=== PATIENT | male | born 1960 | race Caucasian/White ===

== ENCOUNTER 2017-09-04 14:41 | Outpatient (CLI) | payer OTHER | END 2017-09-04 14:42 | disposition home or self-care (01) | LOC: SC 14:41 | PROVIDERS: ATTEND Internal Medicine Pulmonary Disease | DX: G47.30 Sleep apnea, unspecified (principal); G47.10 Hypersomnia, unspecified; G47.8 Other sleep disorders; R06.83 Snoring | CPT/HCPCS: 99203; 99212 ==

== ENCOUNTER 2017-11-13 19:14 | Outpatient (CLI) | payer OTHER | END 2017-11-13 19:15 | disposition home or self-care (01) | LOC: SC 19:14 | PROVIDERS: ATTEND Internal Medicine Pulmonary Disease | DX: G47.33 Obstructive sleep apnea (adult) (pediatric) (principal); G47.61 Periodic limb movement disorder | CPT/HCPCS: 95810 ==

== ENCOUNTER 2017-12-11 09:46 | Outpatient (CLI) | payer OTHER | END 2017-12-11 09:47 | disposition home or self-care (01) | LOC: SC 09:46 | PROVIDERS: ATTEND Internal Medicine Pulmonary Disease | DX: G47.33 Obstructive sleep apnea (adult) (pediatric) (principal) | CPT/HCPCS: 99212; 99213 ==

== ENCOUNTER 2018-01-05 17:03 | Outpatient (CLI) | payer OTHER ==
--- NOTE | 2018-01-05 18:38 | Ultrasound Report ---
Procedure Date: 01/05/2018 Accession Number: [id number] / [id number] Procedure: US - Duplex Ext Veins Right CPT Code: FULL RESULT: EXAM: RIGHT LOWER EXTREMITY VENOUS ULTRASOUND EXAM DATE: 01/05/2018 05:56 PM. CLINICAL HISTORY: MARKED EDEMA PAIN R LE. COMPARISON: None. TECHNIQUE: Real-time sonographic vascular imaging was performed by the cardiac specialist through the lower extremity utilizing both color-flow and Doppler spectral analysis. Multiple herbicide service sales representative static images were saved for review. FINDINGS: Common Femoral Vein (CFV): Normal. CFV-GSV Junction: Normal. Profunda Femoral Vein (PFV): Normal. Femoral Vein (FV) Prox: Normal. Femoral Vein (FV) Mid: Normal. Femoral Vein (FV) Dist: Normal. Popliteal Vein: Normal. Posterior Tibial Veins: Not seen Peroneal Veins: Not seen other: There is a popliteal fossa cyst measuring 5.7 x 2.6 x 4.2 cm IMPRESSION: No evidence for deep venous thrombosis. Popliteal Garcia's cyst. RADIA
== END 2018-01-05 17:04 | disposition home or self-care (01) ==
LOC: DI 17:03
PROVIDERS: ATTEND Internal Medicine
DX: M79.661 Pain in right lower leg (principal); R60.0 Localized edema; M71.21 Synovial cyst of popliteal space [Baker], right knee

== ENCOUNTER 2018-04-04 15:12 | Outpatient (CLI) | payer OTHER | END 2018-04-04 15:13 | disposition home or self-care (01) | LOC: SC 15:12 | PROVIDERS: ATTEND Nurse Practitioner Family | DX: G47.33 Obstructive sleep apnea (adult) (pediatric) (principal) | CPT/HCPCS: 99212; 99214 ==

== ENCOUNTER 2018-07-04 08:40 | Outpatient (CLI) | payer OTHER | END 2018-07-04 08:41 | disposition home or self-care (01) | LOC: SC 08:40 | PROVIDERS: ATTEND Nurse Practitioner Family | DX: G47.33 Obstructive sleep apnea (adult) (pediatric) (principal); R03.0 Elevated blood-pressure reading, without diagnosis of hypertension | CPT/HCPCS: 99212; 99214 ==

== ENCOUNTER 2018-09-04 08:16 | Outpatient (CLI) | payer OTHER | END 2018-09-04 08:17 | disposition home or self-care (01) | LOC: SC 08:16 | PROVIDERS: ATTEND Nurse Practitioner Family | DX: G47.33 Obstructive sleep apnea (adult) (pediatric) (principal); R03.0 Elevated blood-pressure reading, without diagnosis of hypertension | CPT/HCPCS: 99212; 99214 ==

== ENCOUNTER 2018-11-13 13:27 | Outpatient (CLI) | payer OTHER ==
--- NOTE | 2018-11-13 15:07 | Ultrasound Report ---
Reason: ELEVATED LFT, THROMBOCYTOPENIA, UNSPECIFIED Procedure Date: 11/13/2018 Accession Number: [id number] / [id number] Procedure: US - Abdomen Limited CPT Code: FULL RESULT: EXAM: ABDOMEN ULTRASOUND LIMITED, RUQ EXAM DATE: 11/13/2018 01:59 PM. CLINICAL HISTORY: ELEVATED LFT, THROMBOCYTOPENIA, UNSPECIFIED. COMPARISON: None. TECHNIQUE: Real-time scanning was performed with static images obtained. FINDINGS: Liver: Moderately enlarged. Recently increased hepatic parenchymal echogenicity. 20.1 cm. Main portal vein flow: Hepatopetal. Gallbladder: Normal. No stones, wall thickening, or sonographic Carrillo's sign. Biliary System: CBD measures 4.3 mm. No intrahepatic or extrahepatic ductal dilatation. Other: Unremarkable right kidney with right renal length 14.1 cm IMPRESSION: 1. Diffusely echogenic liver parenchyma which is a nonspecific finding, most often associated with steatosis. Less often, this can be associated with chronic hepatitis and/or cirrhosis. 2. Moderate hepatomegaly. 3. Otherwise negative examination. RADIA
== END 2018-11-13 13:28 | disposition home or self-care (01) ==
LOC: DI 13:27
PROVIDERS: ATTEND Internal Medicine
DX: R16.0 Hepatomegaly, not elsewhere classified (principal)
CPT/HCPCS: 76705

== ENCOUNTER 2020-01-02 05:09 | Emergency (ER) | payer OTHER ==
--- NOTE | 2020-01-02 05:18 | ED Physician Documentation ---
History of Present Illness - Stated complaint Stated Complaint: BILAT LEG PX - Chief complaint Chief Complaint: Ext Problem - History obtained from History obtained from: Patient (59 y/o m w cc of b/l le pain, swelling, cramping without cp,sob,syncope, cough. denies any hx of pe/dvt. take hctz. denies tobacco use, denies coldness of extremities. no treatment prior to arrival.) Review of Systems Constitutional: reports: Reviewed and negative Eyes: reports: Reviewed and negative Ears: reports: Reviewed and negative Nose: reports: Reviewed and negative Throat: reports: Reviewed and negative Cardiac: reports: Reviewed and negative Respiratory: reports: Reviewed and negative GI: reports: Reviewed and negative : reports: Reviewed and negative Skin: reports: Reviewed and negative Musculoskeletal: reports: Extremity pain, Extremity swelling Neurologic: reports: Reviewed and negative Psychiatric: reports: Reviewed and negative Endocrine: reports: Reviewed and negative Immunocompromised: reports: Reviewed and negative PD PAST MEDICAL HISTORY - Present Medications Home Medications: Ambulatory Orders Medication Instructions Recorded Confirmed Losartan Potassium 100 mg PO DAILY 01/02/20 01/02/20 Metformin HCl 500 mg PO DAILY 01/02/20 01/02/20 hydroCHLOROthiazide 25 mg PO DAILY 01/02/20 01/02/20 [Hydrochlorothiazide] - Allergies Allergies/Adverse Reactions: Allergies Allergy/AdvReac Type Severity Reaction Status Date / Time No Known Drug Allergies Allergy Verified 01/02/20 05:18 PD ED PE NORMAL - Vitals Vital signs reviewed: Yes - General General: Alert and oriented X 3, No acute distress, Well developed/nourished - HEENT HEENT: PERRL - Neck Neck: Supple, no meningeal sign, No JVD - Cardiac Cardiac: RRR, No murmur, Strong equal pulses - Respiratory Respiratory: No respiratory distress, Clear bilaterally - Abdomen Abdomen: Normal bowel sounds, Soft, Non tender, Non distended - Derm Derm: Warm and dry, Other (b/l le hemosiderin deposition) - Extremities Extremities: No deformity, Other (hemosiderin depositino to b/l lower extremities, 2+ dp/pt pulses, Fasciculations present to bilateral gastrocnemius muscles, Diffuse tenderness to bilateral calves.Sensations intact light touch, compartments soft, neurovascular intact. Cap refill less than 2 seconds bilateral lower extremities warm) - Neuro Neuro: Alert and oriented X 3, processing manager 2-12 intact, No motor deficit, No sensory deficit, Normal speech - Psych Psych: Normal mood, Normal affect Results - Vitals Vitals: Vital Signs - 24 hr 01/02/20 01/02/20 05:10 06:06 Temperature 36.5 C Heart Rate 99 91 Respiratory 20 20 Rate Blood Pressure 172/106 H 141/92 H O2 Saturation 97 95 Oxygen O2 Source Room air - Labs Labs: Laboratory Tests 01/02/20 01/02/20 01/02/20 05:43 05:43 05:43 WBC 3.9 L RBC 4.09 L Hgb 13.4 L Hct 37.7 L MCV 92.2 MCH 32.8 H MCHC 35.5 RDW 12.6 Plt Count 54 L MPV 9.9 Neut # (Auto) 2.5 Lymph # (Auto) 0.9 L Meigs # (Auto) 0.4 Eos # (Auto) 0.1 Baso # (Auto) 0.0 Absolute Nucleated RBC 0.00 Nucleated RBC % 0.0 PT INR APTT Sodium 129 L Potassium 3.1 L Chloride 91 L Carbon Dioxide 21 Anion Gap 17.0 H BUN 8 Creatinine 0.8 Estimated GFR (MDRD) 99 Glucose 106 H Calcium 8.4 L Magnesium 1.1 L Total Bilirubin 2.7 H AST 88 H ALT 49 Alkaline Phosphatase 47 Total Creatine Kinase 505 H B-Natriuretic Peptide 19 Total Protein 7.0 Albumin 4.1 Globulin 2.9 Albumin/Globulin Ratio 1.4 Lipase 75 H 01/02/20 06:00 WBC RBC Hgb Hct MCV MCH MCHC RDW Plt Count MPV Neut # (Auto) Lymph # (Auto) Meigs # (Auto) Eos # (Auto) Baso # (Auto) Absolute Nucleated RBC Nucleated RBC % PT 13.6 H INR 1.2 APTT 29.8 Sodium Potassium Chloride Carbon Dioxide Anion Gap BUN Creatinine Estimated GFR (MDRD) Glucose Calcium Magnesium Total Bilirubin AST ALT Alkaline Phosphatase Total Creatine Kinase B-Natriuretic Peptide Total Protein Albumin Globulin Albumin/Globulin Ratio Lipase PD MEDICAL DECISION MAKING - ED course Complexity details: reviewed results, re-evaluated patient, considered differential (dvt, dehydration, electrolyte depletion/derangement. ), d/w patient, other (patient signed out at shift change to dr. shakir mo.) Departure - Departure Clinical Impression: Hyponatremia, Hypokalemia, Hypomagnesemia Pain of lower extremity Qualifiers: Laterality: bilateral Qualified Code(s): M79.604 - Pain in right leg Condition: Stable
[2020-01-02] MEDS ORDERED: diazePAM INJ 5 MG/ML SYRINGE IVP STA (05:29)
[2020-01-02] MEDS ORDERED: SODIUM CHLORIDE 0.9% 1,000 ML IV STA (05:29)
[2020-01-02 05:50] LABS: BASOPHILS % (AUTO) 0.8 %; EOSINOPHILS # (AUTO) 0.1 10^3/uL (0.0-0.7); EOSINOPHILS % (AUTO) 2.6 %; HGB - HEMOGLOBIN 13.4 g/dL (14.0-18.0); LYMPHOCYTES # (AUTO) 0.9 10^3/uL (1.5-3.5); MEAN CORPUSCULAR HEMOGLOBIN 32.8 pg (27.0-31.0); MEAN CORPUSCULAR HGB CONC 35.5 g/dL (32.0-36.0); MEAN CORPUSCULAR VOLUME 92.2 fL (80.0-94.0); MEAN PLATELET VOLUME 9.9 fL (7.4-11.4); MONOCYTES # (AUTO) 0.4 10^3/uL (0.0-1.0); MONOCYTES % (AUTO) 10.7 %; NEUTROPHILS # (AUTO) 2.5 10^3/uL (1.5-6.6); NEUTROPHILS % (AUTO) 62.6 %; PLT - PLATELET COUNT 54 10^3/uL (130-450); RED BLOOD COUNT 4.09 10^6/uL (4.70-6.10); RED CELL DISTRIBUTION WIDTH 12.6 % (12.0-15.0); WHITE BLOOD COUNT 3.9 x10^3/uL (4.8-10.8)
[2020-01-02 06:03] LABS: ALBUMIN 4.1 g/dL (3.2-5.5); ALBUMIN/GLOBULIN RATIO 1.4 (1.0-2.2); BILIRUBIN,TOTAL 2.7 mg/dL (0.2-1.0); CALCIUM 8.4 mg/dL (8.5-10.3); CREATININE 0.8 mg/dL (0.6-1.2); MAGNESIUM 1.1 mg/dL (1.7-2.8)
[2020-01-02 06:11] LABS: INR 1.2 (0.8-1.2); PT - PROTHROMBIN TIME 13.6 secs (9.9-12.6)
[2020-01-02 06:18] LABS: PARTIAL THROMBOPLASTIN TIME 29.8 secs (24.9-33.3)
[2020-01-02] MEDS ORDERED: MAGNESIUM SULFATE 1 GM/2 ML VIAL IVP STA (06:31)
[2020-01-02] MEDS ORDERED: POTASSIUM CHLORIDE 20 MEQ TABLET PO STA (06:32)
[2020-01-02] MEDS ORDERED: MAGNESIUM SULFATE 2 GRAM 2 GM/50 ML BAG IV ONE (06:50)
[2020-01-02] MEDS ORDERED: KETOROLAC 30 MG/ML VIAL IVP STA (08:02)
--- NOTE | 2020-01-02 08:16 | ED Physician Documentation ---
ED Addendum - Addendum Addendum: 01/02/20 08:14 Recheck upon change of shift and the patient has completed his electrolyte infusion. He is feeling less spasms. He is still sore in the muscles. He describes muscle spasms and general pains and not particularly arthritic joint pains. He had received fluids and electrolyte supplements here. We will add in some Toradol. He does take hydrochlorothiazide as 1 of his medicines so we will have him hold that for several days while we add electrolyte supplements. He c an continue his losartan separately. (The HCTZ is a separate prescription). He does not take any cholesterol medicines. He had not had unusual activity. He is feeling improved enough to head home. He will take today off work and possibly tomorrow until his muscles are feeling better.
[2020-01-02 08:42] VITALS: BP 142/86
--- NOTE | 2020-01-02 08:44 | Ultrasound Report ---
PROCEDURE: Duplex Ext Veins Bilateral INDICATIONS: Bilateral leg pain and swelling. TECHNIQUE: Real-time imaging, as well as color and pulse Doppler interrogation, were performed of the deep veins of both legs from the inguinal ligament to the popliteal fossa. COMPARISON: 01/05/2018. FINDINGS: The deep veins are normally compressible, and free of intraluminal thrombus. Color and pu lse Doppler demonstrate normal phasic intravascular flow. There is normal augmentation response to d istal compression maneuver. There is a fluid collection in the right popliteal fossa measuring up to 3.9 x 2.4 x 3.6 cm compatibl e with a Garcia's cyst. IMPRESSION: 1. No evidence of deep venous thrombosis in the right or left lower extremity. 2. Right Garcia's cyst redemonstrated. Reviewed by: Bret Lutz MD on 01/02/2020 8:43 AM PDT Approved by: Bret Lutz MD on 01/02/2020 8:43 AM PDT Station ID: [id number]
== END 2020-01-02 08:40 | disposition home or self-care (01) ==
LOC: ED 05:09
DX: E87.1 Hypo-osmolality and hyponatremia (principal); E87.6 Hypokalemia; E83.42 Hypomagnesemia
CPT/HCPCS: 36415; 80053; 82550; 83690; 83735; 83880; 85025; 85610; 85730; 93970; 96361; 96374; 96375; 99283; 99284; A9270

== ENCOUNTER 2020-01-02 14:02 | Outpatient (CLI) | payer OTHER | END 2020-01-02 14:03 | disposition critical access hospital (66) | LOC: EMS 14:02 | PROVIDERS: ATTEND Surgery | DX: R41.0 Disorientation, unspecified (principal) | CPT/HCPCS: A0425; A0427 ==

== ENCOUNTER 2020-12-03 00:24 | Emergency (ER) | payer OTHER ==
[2020-12-03] MEDS ORDERED: KETOROLAC 15 MG/ML VIAL IVP STA (00:48)
[2020-12-03] MEDS ORDERED: SODIUM CHLORIDE 0.9% 1,000 ML IV STA (00:48)
[2020-12-03] MEDS ORDERED: LOSARTAN 50 MG TABLET PO STA (00:49)
--- NOTE | 2020-12-03 00:50 | ED Physician Documentation ---
History of Present Illness - Stated complaint Stated Complaint: HIGH BP, ELEVATED HR, DIARRHEA, N/V - Chief complaint Chief Complaint: General - History obtained from History obtained from: Patient, Family () - Additonal information Additional information: 60-year-old man with past medical history of burt, high blood pressure, prior history of alcohol abuse and possible diabetes, not currently on diabetic medications, presents with about 20 hours of progressive nonbloody nonbilious nausea and vomiting and diarrhea. Patient denies fevers but does have myalgias and chills. Also pulled his back out. PD PAST MEDICAL HISTORY - Past Medical History Cardiovascular: Hypertension Respiratory: None Neuro: None Endocrine/Autoimmune: None Musculoskeletal: Other - Past Surgical History Past Surgical History: Yes Ortho: Other - Present Medications Home Medications: Ambulatory Orders Medication Instructions Recorded Confirmed Losartan Potassium 100 mg PO DAILY 01/02/20 12/03/20 Metoprolol Tartrate [Lopressor] 25 mg PO BID 12/03/20 12/03/20 - Allergies Allergies/Adverse Reactions: Allergies Allergy/AdvReac Type Severity Reaction Status Date / Time No Known Drug Allergies Allergy Verified 12/03/20 00:37 - Social History Does the pt smoke?: No Smoking Status: Never smoker Does the pt drink ETOH?: Yes Does the pt have substance abuse?: No - Immunizations Immunizations are current?: Yes - POLST Patient has POLST: No PD ED PE NORMAL - Vitals Vital signs reviewed: Yes - General General: Alert and oriented X 3, No acute distress, Well developed/nourished, Other (Large body habitus) - HEENT HEENT: Atraumatic, PERRL, EOMI - Neck Neck: Supple, no meningeal sign - Cardiac Cardiac: RRR, Other (Significant gynecomastia.) - Respiratory Respiratory: No respiratory distress, Clear bilaterally - Abdomen Abdomen: Non tender, Non distended - Back Back: No CVA TTP, No spinal TTP - Derm Derm: Normal color, Warm and dry - Extremities Extremities: No deformity - Neuro Neuro: Alert and oriented X 3 - Psych Psych: Normal mood, Normal affect Results - Vitals Vitals: Vital Signs - 24 hr 12/03/20 12/03/20 12/03/20 00:35 01:05 01:32 Temperature 36.5 C 36.6 C 36.6 C Heart Rate 89 89 81 Respiratory 20 17 16 Rate Blood Pressure 188/92 H 171/90 H 172/101 H O2 Saturation 96 98 98 Oxygen O2 Source Room air - EKG (time done) 0039 Rate: Rate (enter#) (80) Rhythm: NSR Intervals: Normal [place] Ischemia: Normal ST segments, ST elevation c/w repol. No: ST depression Other comments: Other comments (significant artifact) Compare to prior EKG: Unchanged from prior EKG (01/02/20) 0127 Rate: Rate (enter#) (88) Rhythm: NSR Intervals: Normal [place], QRS normal QRS: Normal Ischemia: Normal ST segments Computer interpretation: Disagree with computer (some mild motion artifact. computer said afib but there are clearly visible p waves with normal pr interval and rr interval) - Labs Labs: Laboratory Tests 12/03/20 12/03/20 12/03/20 00:47 00:47 00:47 WBC 6.7 RBC 4.55 L Hgb 14.1 Hct 41.3 L MCV 90.8 MCH 31.0 MCHC 34.1 RDW 13.3 Plt Count 85 L MPV 10.3 Neut # (Auto) 4.4 Lymph # (Auto) 1.5 Cochran # (Auto) 0.6 Eos # (Auto) 0.2 Baso # (Auto) 0.0 Absolute Nucleated RBC 0.00 Nucleated RBC % 0.0 Sodium 136 Potassium 3.6 Chloride 100 L Carbon Dioxide 24 Anion Gap 12.0 BUN 8 Creatinine 0.9 Estimated GFR (MDRD) 86 L Glucose 131 H Calcium 8.8 Magnesium 1.3 L Total Bilirubin 2.2 H AST 57 H ALT 41 Alkaline Phosphatase 65 Total Protein 7.2 Albumin 4.2 Globulin 3.0 Albumin/Globulin Ratio 1.4 Lipase 41 PD MEDICAL DECISION MAKING - ED course ED course: 60-year-old man presented with nausea, vomiting, diarrhea, found to have elevated blood pressure and heart rate at home. His symptoms have improved in the emergency department. On reexamination he feels asymptomatic. Does state that he thought he had episode of mild self remitting chest twinge at home but that it has completely resolved. Repeat EKG unchanged. He and his believe it is stress related, however strict return precautions given. Patient will follow up with his primary doctor. Departure - Departure Disposition: Home, Self Care Clinical Impression: Nausea and vomiting, Hypertension, Diarrhea Condition: Good Instructions: Hypertension Control, ED Nausea Vomiting Comments: You were seen in the emergency department for nausea and vomiting as well as high blood pressure. Your lab work showed mild elevation in your liver function tests, but they are improved from previous lab work. Your EKG did not show new concerning findings as compared with prior ekg from 2019. Please return to the emergency department immediately if you have any new or worsening symptoms or other concerns. Follow-up with your primary doctor.
[2020-12-03 00:56] LABS: BASOPHILS % (AUTO) 0.6 %; EOSINOPHILS # (AUTO) 0.2 10^3/uL (0.0-0.7); EOSINOPHILS % (AUTO) 3.4 %; HCT - HEMATOCRIT 41.3 % (42.0-52.0); HGB - HEMOGLOBIN 14.1 g/dL (14.0-18.0); LYMPHOCYTES # (AUTO) 1.5 10^3/uL (1.5-3.5); LYMPHOCYTES % (AUTO) 21.5 %; MEAN CORPUSCULAR HGB CONC 34.1 g/dL (32.0-36.0); MEAN CORPUSCULAR VOLUME 90.8 fL (80.0-94.0); MEAN PLATELET VOLUME 10.3 fL (7.4-11.4); MONOCYTES # (AUTO) 0.6 10^3/uL (0.0-1.0); MONOCYTES % (AUTO) 9.1 %; NEUTROPHILS # (AUTO) 4.4 10^3/uL (1.5-6.6); NEUTROPHILS % (AUTO) 65.3 %; PLT - PLATELET COUNT 85 10^3/uL (130-450); RED BLOOD COUNT 4.55 10^6/uL (4.70-6.10); RED CELL DISTRIBUTION WIDTH 13.3 % (12.0-15.0); WHITE BLOOD COUNT 6.7 x10^3/uL (4.8-10.8)
[2020-12-03 01:06] LABS: ALBUMIN 4.2 g/dL (3.2-5.5); ALBUMIN/GLOBULIN RATIO 1.4 (1.0-2.2); BILIRUBIN,TOTAL 2.2 mg/dL (0.2-1.0); CALCIUM 8.8 mg/dL (8.5-10.3); CREATININE 0.9 mg/dL (0.6-1.2); POTASSIUM 3.6 mmol/L (3.5-5.0); TOTAL PROTEIN 7.2 g/dL (6.7-8.2)
[2020-12-03 01:32] VITALS: BP 172/101
--- NOTE | 2020-12-03 08:18 | XRAY Report ---
PROCEDURE: Chest 1 View X-Ray INDICATIONS: Chest Pain TECHNIQUE: One view of the chest was acquired. COMPARISON: Chest x-ray one view, 01/02/2020 FINDINGS: Surgical changes and devices: None. Lungs and pleura: No pleural effusions or pneumothorax. Lungs are clear. Mediastinum: Mediastinal contours appear normal. Heart size is normal. Bones and chest wall: No suspicious bony lesions. Overlying soft tissues appear unremarkable. IMPRESSION: No acute cardiopulmonary disease. No significant discrepancy with the preliminary interpretation. Reviewed by: Rodolfo Tobias MD on 12/03/2020 8:17 AM PDT Approved by: Rodolfo Tobias MD on 12/03/2020 8:17 AM PDT Station ID: [id number]
== END 2020-12-03 01:43 | disposition home or self-care (01) ==
LOC: ED 00:24
DX: R11.2 Nausea with vomiting, unspecified (principal); R19.7 Diarrhea, unspecified; I10 Essential (primary) hypertension; Z20.822 Contact with and (suspected) exposure to COVID-19
CPT/HCPCS: 36415; 71045; 80053; 83690; 83735; 85025; 87635; 93005; 96374; 99281; 99284; A9270

== ENCOUNTER 2024-01-12 09:31 | Outpatient (CLI) | payer OTHER | END 2024-01-12 23:59 | disposition critical access hospital (66) | LOC: EMS 09:31 | DX: R53.1 Weakness (principal); R55 Syncope and collapse; R07.9 Chest pain, unspecified | CPT/HCPCS: A0425; A0427 ==

== ENCOUNTER 2024-01-12 10:01 | Inpatient (IN) | payer OTHER ==
[2024-01-12] MEDS: SODIUM CHLORIDE 0.9% 1,000 ML IV STA ×2 (10:17→12:40)
[2024-01-12] MEDS: MORPHINE 2 MG/ML CARPUJECT IVP STA (10:17)
[2024-01-12 10:23] LABS: BASOPHILS % (AUTO) 0.5 %; HCT - HEMATOCRIT 32.6 % (42.0-52.0); HGB - HEMOGLOBIN 10.5 g/dL (14.0-18.0); LYMPHOCYTES # (AUTO) 1.2 10^3/uL (1.5-3.5); LYMPHOCYTES % (AUTO) 21.7 %; MEAN CORPUSCULAR HEMOGLOBIN 29.1 pg (27.0-31.0); MEAN CORPUSCULAR HGB CONC 32.2 g/dL (32.0-36.0); MEAN CORPUSCULAR VOLUME 90.3 fL (80.0-94.0); MEAN PLATELET VOLUME 11.5 fL (7.4-11.4); MONOCYTES # (AUTO) 0.7 10^3/uL (0.0-1.0); MONOCYTES % (AUTO) 11.7 %; NEUTROPHILS # (AUTO) 3.6 10^3/uL (1.5-6.6); NEUTROPHILS % (AUTO) 65.7 %; RED BLOOD COUNT 3.61 10^6/uL (4.70-6.10); RED CELL DISTRIBUTION WIDTH 19.2 % (12.0-15.0); WHITE BLOOD COUNT 5.5 x10^3/uL (4.8-10.8)
[2024-01-12 10:27] LABS: PLT - PLATELET COUNT 29 10^3/uL (130-450); SLIDE REVIEW? Indicated
--- NOTE | 2024-01-12 10:33 | XRAY Report ---
PROCEDURE: Chest 1V INDICATIONS: Chest Pain TECHNIQUE: One view of the chest was acquired. COMPARISON: 12/03/2020. FINDINGS: Surgical changes and devices: None. Lungs and pleura: Prominent interstitial markings. Probable left pleural effusion. Mediastinum: Mediastinal contours appear normal. Heart size is enlarged. Bones and chest wall: No suspicious bony lesions. Overlying soft tissues appear unremarkable. IMPRESSION: Cardiomegaly and prominent interstitial markings, concerning for pulmonary edema. Probable left pleur al effusion. Reviewed by: Forrest Morales MD on 01/12/2024 10:32 AM PDT Approved by: Forrest Morales MD on 01/12/2024 10:32 AM PDT Station ID: [id number]
[2024-01-12 10:40] LABS: PLATELET ESTIMATE, MANUAL DECREASED (<130,000) (NORMAL); PLATELET MORPHOLOGY NORMAL APPEARANCE (NORMAL); RBC MORPHOLOGY (MULTIPLE) NORMAL APPEARANCE (NORMAL); WBC MORPHOLOGY (MULTIPLE) NORMAL APPEARANCE (NORMAL)
[2024-01-12 10:42] LABS: ALBUMIN 3.5 g/dL (3.2-5.5); ALBUMIN/GLOBULIN RATIO 1.1 (1.0-2.2); BILIRUBIN,TOTAL 1.3 mg/dL (0.2-1.0); CALCIUM 8.5 mg/dL (8.5-10.3); CREATININE 2.7 mg/dL (0.6-1.3); MAGNESIUM 1.4 mg/dL (1.7-2.3); POTASSIUM 3.9 mmol/L (3.5-4.5); TOTAL PROTEIN 6.7 g/dL (6.4-8.9)
[2024-01-12 10:45] LABS: TROPONIN I HIGH SENSITIVITY 17.8 ng/L (2.3-19.7)
[2024-01-12] MEDS: METOPROLOL 5 MG/5 ML VIAL IVP STA ×2 (11:22→12:40)
[2024-01-12] MEDS: MAGNESIUM SULFATE 2 GRAM 2 GM/50 ML BAG IV ONE (12:11)
--- NOTE | 2024-01-12 12:13 | ED Physician Documentation ---
PD HPI SYNCOPE - Stated complaint Stated Complaint: CP/NEAR SYNCOPE - Chief complaint Chief Complaint: Cardiac - History obtained from History obtained from: Patient, Family (spouse), EMS - History of Present Illness Witnessed: Witnessed Timing - onset: Today Duration: Seconds Preceding symptoms: Chest pain (discomfort in chest more than pain per se.), Light headed. 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 Nausea and vomiting and diarrhea, with general weakness and was improving but not back to normal. No emesis since Mon; but still nausea so less intake than usual, as well as food.) Review of Systems Constitutional: reports: Chills, Myalgias, Fatigue. denies: Fever Musculoskeletal: reports: Extremity swelling (chronic lymphedema both lower legs.), Other (chronic lymphedema of both lower legs.) PD PAST MEDICAL HISTORY - Past Medical History Past Medical History: Yes Cardiovascular: Hypertension, Other (no history of AK< CHF, atrial fib. ) Respiratory: None Neuro: None Endocrine/Autoimmune: None Musculoskeletal: Other Other Past Medical History: Lymph edema - Past Surgical History Past Surgical History: Yes Ortho: Other - Present Medications Home Medications: Ambulatory Orders Medication Instructions Recorded Confirmed Metformin HCl [Glucophage Xr] 1 tab BID 12/08/20 02/24/21 Furosemide [Lasix] 20 mg PO DAILY 01/12/24 01/12/24 Losartan [Cozaar] 100 mg PO DAILY 01/12/24 01/12/24 Metoprolol Succinate [Toprol Xl] 50 mg PO DAILY 01/12/24 01/12/24 Zonisamide [Zonegran] 100 mg PO BID 01/12/24 01/12/24 - Allergies Allergies/Adverse Reactions: Allergies Allergy/AdvReac Type Severity Reaction Status Date / Time No Known Drug Allergies Allergy Verified 01/12/24 10:07 - Social History Does the pt smoke?: No Smoking Status: Never smoker Does the pt drink ETOH?: Yes Does the pt have substance abuse?: No - Immunizations Immunizations are current?: Yes - POLST Patient has POLST: No PD ED PE NORMAL - Vitals Vital signs reviewed: Yes - General General: Alert and oriented X 3, No acute distress, Well developed/nourished - Cardiac Cardiac: No murmur. No: RRR (irregular with rate 100-110) - Respiratory Respiratory: No respiratory distress, Clear bilaterally - Abdomen Abdomen: Soft, Non tender - Derm Derm: Normal color, Warm and dry - Extremities Extremities: Other (lymphedema from knees down on both legs. Chronis stasis changes of skin. ) - Neuro Neuro: Alert and oriented X 3, No motor deficit, Normal speech Results - Vitals Vitals: Vital Signs - 24 hr 01/12/24 01/12/24 01/12/24 10:02 10:52 11:47 Temperature 36.3 C L 36.5 C Heart Rate 124 H 121 H 103 H Respiratory 20 18 18 Rate Blood Pressure 129/74 104/69 127/78 O2 Saturation 99 98 100 01/12/24 01/12/24 01/12/24 13:00 13:38 14:31 Temperature Heart Rate 96 96 104 H Respiratory 14 18 18 Rate Blood Pressure 95/52 L 107/71 112/84 H O2 Saturation 98 99 99 01/12/24 01/12/24 01/12/24 15:33 16:27 16:30 Temperature Heart Rate 104 H 105 H 96 Respiratory 13 14 13 Rate Blood Pressure 124/87 H 126/84 H 133/80 H O2 Saturation 98 97 01/12/24 17:28 Temperature Heart Rate 106 H Respiratory 13 Rate Blood Pressure 139/94 H O2 Saturation Oxygen O2 Source Room air - EKG (time done) 10:10 EKG releavant findings:: EKG personally interpreted by author of this note. Relevant findings are: Rate: Rate (enter#) (113) Rhythm: Atrial fibrillation [place]: Normal Ischemia: Normal ST segments. No: ST elevation c/w ischemia, ST depression Compare to prior EKG: Old EKG unavailable - Labs Labs: Laboratory Tests 01/12/24 01/12/24 01/12/24 10:12 10:12 10:12 WBC 5.5 RBC 3.61 L Hgb 10.5 L Hct 32.6 L MCV 90.3 MCH 29.1 MCHC 32.2 RDW 19.2 H Plt Count 29 L* MPV 11.5 H Neut # (Auto) 3.6 Lymph # (Auto) 1.2 L Cand[place] # (Auto) 0.7 Eos # (Auto) 0.0 Baso # (Auto) 0.0 Absolute Nucleated RBC 0.00 Nucleated RBC % 0.0 Manual Slide Review Indicated WBC Morphology NORMAL APPEARANCE Platelet Estimate DECREASED (<130,000) Platelet Morphology NORMAL APPEARANCE RBC Morph Micro Appear NORMAL APPEARANCE Sodium 135 Potassium 3.9 Chloride 99 L Carbon Dioxide 24 Anion Gap 12.0 BUN 21 H Creatinine 2.7 H Estimated GFR (MDRD) 24 L Glucose 113 H Calcium 8.5 Magnesium 1.4 L Total Bilirubin 1.3 H AST 83 H ALT 33 Alkaline Phosphatase 81 Troponin I High Sens 17.8 B-Natriuretic Peptide 70 Total Protein 6.7 Albumin 3.5 Globulin 3.2 Albumin/Globulin Ratio 1.1 Lipase 148 H 01/12/24 01/12/24 11:25 18:01 WBC RBC Hgb Hct MCV MCH MCHC RDW Plt Count MPV Neut # (Auto) Lymph # (Auto) [place] # (Auto) Eos # (Auto) Baso # (Auto) Absolute Nucleated RBC Nucleated RBC % Manual Slide Review WBC Morphology Platelet Estimate Platelet Morphology RBC Morph Micro Appear Sodium 138 Potassium 4.2 Chloride 103 Carbon Dioxide 24 Anion Gap 11.0 BUN 20 Creatinine 1.9 H Estimated GFR (MDRD) 36 L Glucose 97 Calcium 8.4 L Magnesium 1.5 L Total Bilirubin AST ALT Alkaline Phosphatase Troponin I High Sens 16.0 B-Natriuretic Peptide Total Protein Albumin Globulin Albumin/Globulin Ratio Lipase - Rads (name of study) chest xry Relevant Findings:: Prelim report reviewed, EMP independent interpretation of test (cardiomegaly with some prominence interstitial markings.) PD Medical Decision Making - ED course Complexity details: reviewed results (creatinine is elevated at 2.7, presume ALEX with recent illness. Trop and BNP normal, so not apparent AK/CHF.), considered differential (transient hypotension found by medics which improved with IV fluid. ECG okay enroute regarding ischemia but apparent atrial fib with rate [id number]. 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 Had been dehydrated/NV 3-4 days ago and could have been during that. Is rate controlled.), d/w patient ED course: The patient has a history of hypertension in the past. He was ill with signif icant vomiting and diarrhea for 2 days earlier this week on Monday and Monday. He felt improved moderately on Monday and went to work with general weakness feeling. Off work yesterday. He actually felt like he was taking better oral intake for last 2 days. This morning at work he noted an onset of chest discomfort and then fainted. EMS was called and noted his initial blood pressure to be 80s systolic with a heart rate approximately 100-1 20. It did appear irregular. The patient does not have any history of fainting or heart failure or heart attacks. No history of atrial fibrillation. The patient was given IV fluids by EMS and his blood pressure improved promptly. He arrived to the ER with 114 systolic. Heart rate was noted between 100 and 110 and irregular consistent with a rate controlled atrial fibrillation. The patient is feeling generally improved here without any lightheadedness. He is not having any chest pain. Initial blood testing is showing a notable elevation of creatinine at 2.7 with a baseline of him being approximately 1. Other lab values of note were magnesium 1.4. Potassium was in the normal range. His blood count did show a low platelet count of 29. 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 He is not on any medications per se for it. He states he has been as low as 23 in the past but typically runs about 50. His troponin and repeat troponin are normal. BNP is negative. His chest x-ray shows some mild increased vascularity. He does not appear to be in acute heart failure nor have evidence of AK. I presume his atrial fibrillation is due to physiologic stress from recent dehydration and electrolyte imbalances along with the renal insufficiency. He was given a dose of metoprolol. He normally does take blood pressure medicines and had been taking them the last few days which likely contributed to the easier hypotensive effect of the A-fib. Is not positively clear that the A-fib just started this morning though it sounds most likely. Given that its likely related to the physiologic stress of dehydration and recent illness, I not feeling inclined to necessarily go to cardioversion but would rather treat the electrolytes and fluid status, maintain rate control with metoprolol and see if it converts back on its own. I think his main issue is the acute renal insufficiency related to recent illness along with electrolyte imbalance. He is maintained on IV fluid hydration. I do believe he needs hospitalization for hydration and reevaluation of the chemistry panel and monitoring of the heart rate. Departure - Departure Disposition: ED Place in Observation Clinical Impression: ALEX (acute kidney injury), Gastroenteritis, Chronic idiopathic thrombocytopenia, Syncope, New onset atrial fibrillation Condition: Stable Record reviewed to determine appropriate education?: Yes Discharge Date/Time: 01/12/24 19:05
[2024-01-12] MEDS ORDERED: ONDANSETRON 4 MG/2 ML VIAL IVP PRN (18:33)
[2024-01-12] MEDS ORDERED: ACETAMINOPHEN 325 MG TABLET PO PRN (18:33)
[2024-01-12] MEDS ORDERED: SODIUM CHLORIDE FLUSH 0.9% 10 ML SYRINGE IVP PRN (18:33)
[2024-01-12 18:36] LABS: CALCIUM 8.4 mg/dL (8.5-10.3); CREATININE 1.9 mg/dL (0.6-1.3); MAGNESIUM 1.5 mg/dL (1.7-2.3); POTASSIUM 4.2 mmol/L (3.5-4.5)
--- NOTE | 2024-01-12 18:44 | HISTORY & PHYSICAL EXAMINATION ---
Chief Complaint - Chief Complaint Chief Complaint: I passed out History of Present Illness - Admitted From Admitted From:: [facility] Emergency Department - History Obtained From Records Reviewed: EMR History obtained from: Patient Exam Limitations: None - History of Present Illness HPI Comment/Other: Mr. Romero is a 63-year-old male with a history of hypertension, immune thrombocytopenic purpura, lymphedema, NATTY on CPAP, seizure disorder and prediabetes who presents with syncope. The patient indicates that he had been in his normal state of health but on 01/08/2024 he developed myalgias, fatigue, chills and significant nausea, vomiting and diarrhea. He had multiple episodes of emesis and diarrhea but denies having any hematemesis, melena or hematochezia. He was having mild abdominal cramps but denied significant abdominal pain. During that time he was unable to eat very much but was trying to drink electrolyte solutions to stay hydrated. The symptoms persisted through Monday and Monday but started to improve on Monday. Yesterday he was feeling improved though he did notice he was still fatigued, weak and dizzy when standing. Today he did decide to go to work and not long after being at work he became lightheaded and felt chest tightness but denied any palpitations or pleurisy. He then started to blackout and his coworkers indicated he passed out briefly for few seconds. There is no seizure-like activity and he regained consciousness rapidly. EMS was contacted who noted his blood pressure was in the 80s systolic and he was also tachycardic in the 100-1 20 range and apparent new onset atrial fibrillation with RVR. He was given IV fluids and brought to the emergency department. In the emergency department he indicated his symptoms were better and his blood pressure was in the 100-120 systolic range after receiving IV fluids. He remained in atrial fibrillation with rates in the 100-110 range. His labs showed a troponin of 17.8 that decreased to 16.0 but he did have acute kidney injury with a creatinine of 2.7 where his baseline creatinine is about 1.1. He was also noted to have a platelet count of 29, with his baseline platelet count ranging from 50-100 though this is not able to be verified as his labs are not in our system. Given his syncopal episode and new onset atrial fibrillation with RVR along with acute kidney injury he was placed in the hospital for [facility]. History - Past Medical History Cardiovascular: reports: Hypertension Respiratory: reports: None Neuro: reports: None Endocrine/Autoimmune: reports: None Musculoskeletal: reports: Other MRSA Hx?: No Other Past Medical History: Lymph edema - Past Surgical History Ortho: reports: Other - Family & Social History Family History Comment/Other: Patient could not recall his family history - POLST Patient has POLST: No Meds/Allgy - Home Medications Home Medications: Ambulatory Orders Medication Instructions Recorded Confirmed Metformin HCl [Glucophage Xr] 1 tab BID 12/08/20 02/24/21 Furosemide [Lasix] 20 mg PO DAILY 01/12/24 01/12/24 Losartan [Cozaar] 100 mg PO DAILY 01/12/24 01/12/24 Metoprolol Succinate [Toprol Xl] 50 mg PO DAILY 01/12/24 01/12/24 Zonisamide [Zonegran] 100 mg PO BID 01/12/24 01/12/24 - Allergies Allergies/Adverse Reactions: Allergies Allergy/AdvReac Type Severity Reaction Status Date / Time No Known Drug Allergies Allergy Verified 01/12/24 10:07 Review of Systems - Constitutional Constitutional: reports: Fatigue, Fever, Chills, Malaise, Weakness, Poor appetite. denies: Night sweats - Eyes Eyes: denies: Blurred vision, Vision loss - Ears, Nose & Throat Ears, Nose & Throat: denies: Tinnitus, Vertigo - Cardiovascular Cariovascular: reports: Irregular heart rate, Chest pain, Lightheadedness, Syncope. denies: Palpitations, Edema, Exertional dyspnea, Orthopnea - Respiratory Respiratory: denies: Cough, Sputum production, Wheezing, Hemoptysis, Orthopnea - Gastrointestinal Gastrointestinal: reports: Diarrhea, Nausea, Vomiting. denies: Abdominal pain, Black stools, Bloody stools, Coffee grounds emesis - Genitourinary Genitourinary: denies: Dysuria, Frequency, Urgency, Hematuria - Musculoskeletal Musculoskeletal: reports: Muscle pain - Integumentary Integumentary: denies: Rash, Lesions - Neurological Neurological: reports: General weakness, Dizziness. denies: Focal weakness, Headache, Numbness - Endocrine Endocrine: denies: Polyuria, Polydypsia, Polyphagia - Hematologic/Lymphatic Hematologic/Lymphatic: reports: Bruising, Petechiae Exam - Vital Signs Reviewed Vital Signs: Yes Vital Signs: Vital Signs x48h Temp Pulse Resp BP Pulse Ox 01/12/24 17:28 106 H 13 139/94 H 01/12/24 16:30 96 13 133/80 H 97 01/12/24 16:27 105 H 14 126/84 H 01/12/24 15:33 104 H 13 124/87 H 98 01/12/24 14:31 104 H 18 112/84 H 99 01/12/24 13:38 96 18 107/71 99 01/12/24 13:00 96 14 95/52 L 98 01/12/24 11:47 103 H 18 127/78 100 01/12/24 10:52 36.5 C 121 H 18 104/69 98 - Physical Exam General Appearance: positive: No acute distress, Alert, Other (Appears fatigued) Eyes Bilateral: positive: Normal inspection, PERRL, EOMI ENT: positive: ENT inspection nml, Pharynx nml, Dry mucous membranes Neck: positive: Nml inspection, Thyroid nml, No JVD, Trachea midline Respiratory: positive: No respiratory distress, Breath sounds nml. negative: Wheezes, Rales, Rhonchi Cardiovascular: positive: No murmur, No gallop, Irregularly irregular, Tachycardia Peripheral Pulses: positive: Other (Unable to palpate due to significant lym phedema) Abdomen: positive: Non-tender, No organomegaly, Nml bowel sounds Skin: positive: Color nml, No rash, Warm, Dry Extremities: positive: Other (Very significant lymphedema in bilateral lower extremities with wrapping on the lower aspect of the legs.) Neurologic/Psychiatric: positive: Oriented x3, CN's nml (2-12), Motor nml, Sensation nml Sepsis Event Note (H) - Evaluation Current Stage of Sepsis: Ruled out Conclusion/Plan - Problem List (1) Syncope and collapse Conclusion/Plan: His syncope is likely multifactorial in nature. Given his recent viral gastroenteritis with significant nausea, vomiting and diarrhea earlier this week he has evidence of volume depletion given his acute kidney injury. This is likely the main cause for syncope however he does have new onset atrial fibrillation with RVR and an arrhythmia genic cause is possible as well. While less likely, a pulmonary embolism is a possibility given his significant chronic lymphedema and poor mobility. -Will monitor on telemetry and treat his atrial fibrillation as noted below. -Trend troponins, check D-dimer, obtain echocardiogram, check lower extremity venous duplex. -May ultimately need CTA of his chest to rule out PE once his renal function improves. Cannot empirically anticoagulate given his thrombocytopenia. -Check orthostatic vital signs and placed on continuous IV fluids. (2) Atrial fibrillation with RVR Conclusion/Plan: This represents new onset atrial fibrillation for him. This may be why he was having some chest tightness and may have contributed to his syncope. -Monitor on telemetry. -Trend troponins further however clinically does not appear to be ischemic in nature at this time. -Obtain TTE. If he has systolic dysfunction, he will need further ischemic evaluation. -Check TSH, A1c, lipid panel. -Placed on metoprolol to tartrate 25 mg twice daily. As needed IV metoprolol available for heart rate greater than 110. -Cannot place on anticoagulation at this time given his thrombocytopenia. (3) Lymphedema Conclusion/Plan: He has a longstanding history of chronic lymphedema and follows in the wound clinic due to chronic venous stasis ulcerations. -Will obtain lower extremity venous Doppler to rule out DVT. (4) Cardiomegaly Conclusion/Plan: This is noted on his chest x-ray. Denies any history of CHF or other cardiac conditions. -Obtaining TTE as noted under his atrial fibrillation problem. (5) ALEX (acute kidney injury) Conclusion/Plan: His acute kidney injury is likely secondary to prerenal causes from his dehydration secondary to his viral gastroenteritis. Medication side effects from losartan and furosemide are also contributing in the setting of dehydration. Less likely to be ATN. -Will check renal ultrasound to rule out obstructive causes though that is less likely. -Avoid unnecessary nephrotoxins. -Hold home losartan and furosemide. -Obtain urinalysis, urine sodium and urine creatinine. Obtain serum CK. (6) Prediabetes Conclusion/Plan: Has been on metformin in the past however he indicates he is not taking this anymore and denies having diabetes. -Check A1c. (7) Chronic idiopathic thrombocytopenia Conclusion/Plan: He follows with a continuity director in [place] however he does not recall the name of the continuity director. He denies having any active medications or therapies directed at his ITP. -Reportedly his platelet count baseline is 50-100 but this is not clear as we have no prior records. -Currently platelet count is only 29. Will hold any pharmacologic DVT pr ophylaxis or treatment and avoid NSAIDs. -Monitor daily CBC. -If he has a blood clot on workup, we will have to discuss with hematology at another facility. (8) Seizure disorder Conclusion/Plan: Denies having any recent seizures issues and no reports of seizure-like activity during his syncopal event today. -Monitor for now but no need for seizure workup. -Resume home zonisamide 100 mg twice daily. - Lab Results Fish Bones: 01/12/24 10:12 01/12/24 18:01 - Diagnostic Imaging Results Diagnostic Imaging Results Comments: Chest x-ray: Cardiomegaly and prominent interstitial markings, concerning for pulmonary edema. Probable left pleural effusion. - EKG Results EKG Interpreted Independently: Yes EKG Findings: per my read - atrial fibrillation, HR 113, normal axis and intervals, low voltage, no pathologic Q-waves, no ischemic ST-TW changes. Core Measures - Anticipated LOS I expect patient to be DC'd or transferred within 96 hours.: Yes - DVT/VTE - Prophylaxis VTE/DVT Device ordered at admit?: Yes
[2024-01-12] MEDS ORDERED: HEPARIN 25000UNITS/500ML (D5W) 25,000 UNIT/500 ML BAG IV SCH (19:00)
[2024-01-12] MEDS ORDERED: HEPARIN 5,000 UNIT/ML VIAL IVP ONE (19:00)
[2024-01-12] MEDS: METOPROLOL TARTRATE 50 MG TABLET PO STA (19:38)
[2024-01-12 19:39] LABS: ESTIMATED AVERAGE GLUCOSE 128 mg/dL (70-100); HEMOGLOBIN A1c% 6.1 % (4.27-6.07)
[2024-01-12] MEDS: MAGNESIUM SULFATE 1 GM in SODIUM CHLORIDE 0.9% 50 ML IV ONE (19:40)
[2024-01-12] MEDS: SODIUM CHLORIDE 0.9% 1,000 ML IV SCH (19:40)
[2024-01-12] MEDS ORDERED: NON FORMULARY MED PO SCH (21:00)
[2024-01-12 21:15] LABS: BILIRUBIN,URINE NEGATIVE (NEGATIVE); GLUCOSE, URINE (UA) NEGATIVE (NEGATIVE); KETONES,URINE (UA) NEGATIVE (NEGATIVE); LEUKOCYTE ESTERASE, URINE NEGATIVE (NEGATIVE); NITRITE,URINE NEGATIVE (NEGATIVE); OCCULT BLOOD,URINE SMALL (NEGATIVE); PROTEIN,URINE NEGATIVE (NEGATIVE); UROBILINOGEN,URINE 0.2 (NORMAL) E.U./dL (NORMAL)
[2024-01-12] MEDS: METOPROLOL TARTRATE 25 MG TABLET PO SCH (21:15)
[2024-01-12 21:26] LABS: CASTS, URINE 0-2 Hyaline Casts /LPF; CLARITY,URINE CLEAR (CLEAR); SQUAMOUS EPITHELIAL CELL,UR RARE Squamous (<= Few); WBC,URINE 0-3 /HPF (0-3)
[2024-01-12 21:27] LABS: BACTERIA,URINE None Seen /HPF (None Seen)
[2024-01-12 21:49] LABS: CREATININE,URINE 91.1 mg/dL; SODIUM, URINE 40.5 mmol/L
[2024-01-13] MEDS: SODIUM CHLORIDE FLUSH 0.9% 10 ML SYRINGE IVP SCH (01:48)
[2024-01-13] MEDS: BENZOCAINE/MENTHOL LOZENGE MM PRN (05:02)
[2024-01-13 05:16] LABS: HCT - HEMATOCRIT 32.2 % (42.0-52.0); HGB - HEMOGLOBIN 10.4 g/dL (14.0-18.0); LYMPHOCYTES # (AUTO) 0.5 10^3/uL (1.5-3.5); LYMPHOCYTES % (AUTO) 17.1 %; MEAN CORPUSCULAR HEMOGLOBIN 29.5 pg (27.0-31.0); MEAN CORPUSCULAR HGB CONC 32.3 g/dL (32.0-36.0); MEAN CORPUSCULAR VOLUME 91.2 fL (80.0-94.0); MEAN PLATELET VOLUME 10.6 fL (7.4-11.4); MONOCYTES # (AUTO) 0.5 10^3/uL (0.0-1.0); NEUTROPHILS # (AUTO) 1.9 10^3/uL (1.5-6.6); NEUTROPHILS % (AUTO) 65.6 %; RED BLOOD COUNT 3.53 10^6/uL (4.70-6.10); RED CELL DISTRIBUTION WIDTH 19.3 % (12.0-15.0); WHITE BLOOD COUNT 2.9 x10^3/uL (4.8-10.8)
[2024-01-13 05:32] LABS: BUN - BLOOD UREA NITROGEN 20 mg/dL (6-20); CALCIUM 8.4 mg/dL (8.5-10.3); CARBON DIOXIDE - CO2 24 mmol/L (21-32); CHLORIDE 106 mmol/L (101-111); CHOL/HDL RATIO 1.5 (<5.0); CHOLESTEROL 114 mg/dL; CREATININE 1.5 mg/dL (0.6-1.3); GFR - MDRD 47 (>89); GLUCOSE 90 mg/dL (74-104); HDL CHOLESTEROL 75 mg/dL; LDL CHOLESTEROL,CALCULATED 28 mg/dL; LDL/HDL RATIO 0.4 (<3.6); POTASSIUM 4.3 mmol/L (3.5-4.5); SODIUM 140 mmol/L (135-145); TRIGLYCERIDES 56 mg/dL; VLDL CHOLESTEROL 11 mg/dL
[2024-01-13 06:34] LABS: PLT - PLATELET COUNT 21 10^3/uL (130-450); SLIDE REVIEW? Indicated
[2024-01-13 06:51] LABS: PLATELET ESTIMATE, MANUAL DECREASED (<130,000) (NORMAL); PLATELET MORPHOLOGY NORMAL APPEARANCE (NORMAL)
[2024-01-13 07:53] LABS: ABSOLUTE RETICS # AUTO 0.037 10^6/uL (0.020-0.110); RED BLOOD COUNT 3.55 10^6/uL (4.70-6.10); RETICULOCYTE COUNT % (AUTO) 1.04 % (0.5-2.3)
[2024-01-13] MEDS: METOPROLOL SUCCINATE 50 MG TABLET PO SCH ×2 (08:47→13:22)
[2024-01-13] MEDS: dexAMETHasone 4 MG TABLET PO SCH (08:47)
[2024-01-13] MEDS: guaiFENesin 600 MG TABLET PO SCH (08:48)
[2024-01-13 09:17] LABS: HCT - HEMATOCRIT 32.1 % (42.0-52.0); HGB - HEMOGLOBIN 10.4 g/dL (14.0-18.0); MEAN CORPUSCULAR HEMOGLOBIN 29.5 pg (27.0-31.0); MEAN CORPUSCULAR HGB CONC 32.4 g/dL (32.0-36.0); MEAN CORPUSCULAR VOLUME 91.2 fL (80.0-94.0); MEAN PLATELET VOLUME 9.3 fL (7.4-11.4); RED BLOOD COUNT 3.52 10^6/uL (4.70-6.10); RED CELL DISTRIBUTION WIDTH 19.2 % (12.0-15.0); WHITE BLOOD COUNT 3.4 x10^3/uL (4.8-10.8)
[2024-01-13] MEDS: METOPROLOL 5 MG/5 ML VIAL IVP PRN ×2 (10:51→16:49)
--- NOTE | 2024-01-13 11:45 | PHARMACY PROGRESS NOTE ---
- Best Possible Medication History Admit Date and Time: 01/12/24 1833 Processed by: Pharmacy Medication History completed: Yes Patient Interview: Completed Secondary Source(s): Insurance records (PER INSURANCE RECORDS, HOME MEDICATION, AND PT INTERVIEW) As the person ultimately responsible for medication therapy, providers are able to order a medication from an existing home medication list in [facility] via the "Reconcile Routine" prior to Confirmation of that medication by community support specialist. Such practice is discouraged except when the physician, in their clinical judgment, deems that a medical need exists for a medication without regard to pr evious use.
[2024-01-13] MEDS ORDERED: METOPROLOL 5 MG/5 ML VIAL IVP PRN (12:15)
--- NOTE | 2024-01-13 14:19 | PROVIDER PROGRESS NOTE ---
Subjective - Prog Note Date Prog Note Date: 01/13/24 Prog Note Time: 14:17 - Subjective Pt reports feeling: Improved Subjective: No acute events overnight or since admission. He reports feeling shaky this morning but denies having any dyspnea, nausea, vomiting, diarrhea, orthopnea or PND. He does still have some mild chest tightness but denies any palpitations. Remains afebrile. His labs show that his creatinine has been improving though he has pancytopenia and his platelet counts have decreased to 21. His D-dimer was also elevated at 850. Objective - Vital Signs/Intake & Output Reviewed Vital Signs: Yes Vital Signs: Vital Signs x48h Temp Pulse Resp BP BP Pulse Ox 01/13/24 11:51 118 H 169/110 H 01/13/24 11:36 125 H 160/114 H 01/13/24 11:21 126 H 169/110 H 158/118 H 01/13/24 11:06 116 H 156/115 H 01/13/24 11:01 113 H 156/97 H 01/13/24 10:56 123 H 158/106 H 01/13/24 10:51 124 H 159/110 H 159/110 H 96 01/13/24 08:41 37.2 C 119 H 16 156/108 H 98 Intake & Output: Intake & Output 01/10/24 01/11/24 01/12/24 01/13/24 23:59 23:59 23:59 23:59 Intake Total 2102 3270 Output Total 1250 1025 Balance 852 2245 - Objective General Appearance: positive: No acute distress, Alert Eyes Bilateral: positive: Normal inspection, PERRL, EOMI ENT: positive: ENT inspection nml, Pharynx nml, No signs of dehydration Neck: positive: Nml inspection, Thyroid nml, No JVD, Trachea midline Respiratory: positive: No respiratory distress, Breath sounds nml. negative: Wheezes, Rales, Rhonchi Cardiovascular: positive: No murmur, No gallop, Irregularly irregular, Tachycardia Abdomen: positive: Non-tender, No organomegaly, Nml bowel sounds, No distention Skin: positive: Warm, Dry, Skin rash (Chronic venous stasis dermatitis changes in his lower extremities.) Extremities: positive: Non-tender, Pedal edema (Significant 3-4 close pitting lymphedema of both lower extremities) Neurologic/Psychiatric: positive: Oriented x3, CN's nml (2-12), Motor nml, Sensation nml - Lab Results Fish Bones: 01/13/24 09:09 01/13/24 04:42 Other Labs: Lab Results x24hrs 01/13/24 01/13/24 01/13/24 Range/Units 09:09 04:42 04:42 WBC 3.4 L (4.8-10.8) x10^3/uL RBC 3.52 L (4.70-6.10) 10^6/uL Hgb 10.4 L (14.0-18.0) g/dL Hct 32.1 L (42.0-52.0) % MCV 91.2 (80.0-94.0) fL MCH 29.5 (27.0-31.0) pg MCHC 32.4 (32.0-36.0) g/dL RDW 19.2 H (12.0-15.0) % Plt Count 22 L* (130-450) 10^3/uL MPV 9.3 (7.4-11.4) fL Reticulocyte % (Auto) (0.5-2.3) % Neut # (Auto) (1.5-6.6) 10^3/uL Lymph # (Auto) (1.5-3.5) 10^3/uL [place] # (Auto) (0.0-1.0) 10^3/uL Eos # (Auto) (0.0-0.7) 10^3/uL Baso # (Auto) (0.0-0.1) 10^3/uL Absolute Nucleated RBC x10^3/uL Nucleated RBC % /100WBC Manual Slide Review Platelet Estimate (NORMAL) Platelet Morphology (NORMAL) Absolute Retic (0.020-0.110) 10^6/uL APTT (24.9-33.3) secs D-Dimer (200.0-255.0) ng/mL Sodium (135-145) mmol/L Potassium (3.5-4.5) mmol/L Chloride (101-111) mmol/L Carbon Dioxide (21-32) mmol/L Anion Gap (6-13) BUN (6-20) mg/dL Creatinine (0.6-1.3) mg/dL Estimated GFR (MDRD) (>89) Glucose (74-104) mg/dL Estimat Average Glucose (70-100) mg/dL Hemoglobin A1c % (4.27-6.07) % Calcium (8.5-10.3) mg/dL Magnesium (1.7-2.3) mg/dL Lactate Dehydrogenase 346 H (140-271) IU/L Total Creatine Kinase (30-223) IU/L Troponin I High Sens (2.3-19.7) ng/L Triglycerides mg/dL Cholesterol ( - 200) mg/dL LDL Cholesterol, Calc ( - 129) mg/dL VLDL Cholesterol mg/dL HDL Cholesterol (60 - ) mg/dL LDL/HDL Ratio (<3.6) Cholesterol/HDL Ratio (<5.0) Vitamin B12 402 (180-914) pg/mL Folate 5.1 L (5.90 - >24.8) ng/mL TSH (0.34-5.60) uIU/mL Urine Color Urine Clarity (CLEAR) Urine pH (5.0-7.5) PH Ur Specific [place] (1.002-1.030) Urine Protein (NEGATIVE) mg/dL Urine Glucose (UA) (NEGATIVE) mg/dL Urine Ketones (NEGATIVE) mg/dL Urine Occult Blood (NEGATIVE) Urine Nitrite (NEGATIVE) Urine Bilirubin (NEGATIVE) Urine Urobilinogen (NORMAL) E.U./dL Ur Leukocyte Esterase (NEGATIVE) Urine RBC (0-5) /HPF Urine WBC (0-3) /HPF Ur Squamous Epith Cells (<= Few) Urine Bacteria (None Seen) /HPF Urine Casts /LPF Urine Culture Comments Urine Creatinine mg/dL Urine Sodium mmol/L 01/13/24 01/13/24 01/13/24 Range/Units 04:42 04:42 04:42 WBC 2.9 L (4.8-10.8) x10^3/uL RBC 3.55 L 3.53 L (4.70-6.10) 10^6/uL Hgb 10.4 L (14.0-18.0) g/dL Hct 32.2 L (42.0-52.0) % MCV 91.2 (80.0-94.0) fL MCH 29.5 (27.0-31.0) pg MCHC 32.3 (32.0-36.0) g/dL RDW 19.3 H (12.0-15.0) % Plt Count 21 L* (130-450) 10^3/uL MPV 10.6 (7.4-11.4) fL Reticulocyte % (Auto) 1.04 (0.5-2.3) % Neut # (Auto) 1.9 (1.5-6.6) 10^3/uL Lymph # (Auto) 0.5 L (1.5-3.5) 10^3/uL [place] # (Auto) 0.5 (0.0-1.0) 10^3/uL Eos # (Auto) 0.0 (0.0-0.7) 10^3/uL Baso # (Auto) 0.0 (0.0-0.1) 10^3/uL Absolute Nucleated RBC 0.00 x10^3/uL Nucleated RBC % 0.0 /100WBC Manual Slide Review Indicated Platelet Estimate DECREASED (<130,000) (NORMAL) Platelet Morphology NORMAL APPEARANCE (NORMAL) Absolute Retic 0.037 (0.020-0.110) 10^6/uL APTT (24.9-33.3) secs D-Dimer (200.0-255.0) ng/mL Sodium 140 (135-145) mmol/L Potassium 4.3 (3.5-4.5) mmol/L Chloride 106 (101-111) mmol/L Carbon Dioxide 24 (21-32) mmol/L Anion Gap 10.0 (6-13) BUN 20 (6-20) mg/dL Creatinine 1.5 H (0.6-1.3) mg/dL Estimated GFR (MDRD) 47 L (>89) Glucose 90 (74-104) mg/dL Estimat Average Glucose (70-100) mg/dL Hemoglobin A1c % (4.27-6.07) % Calcium 8.4 L (8.5-10.3) mg/dL Magnesium (1.7-2.3) mg/dL Lactate Dehydrogenase (140-271) IU/L Total Creatine Kinase (30-223) IU/L Troponin I High Sens (2.3-19.7) ng/L Triglycerides 56 mg/dL Cholesterol 114 ( - 200) mg/dL LDL Cholesterol, Calc 28 ( - 129) mg/dL VLDL Cholesterol 11 mg/dL HDL Cholesterol 75 (60 - ) mg/dL LDL/HDL Ratio 0.4 (<3.6) Cholesterol/HDL Ratio 1.5 (<5.0) Vitamin B12 (180-914) pg/mL Folate (5.90 - >24.8) ng/mL TSH (0.34-5.60) uIU/mL Urine Color Urine Clarity (CLEAR) Urine pH (5.0-7.5) PH Ur Specific [place] (1.002-1.030) Urine Protein (NEGATIVE) mg/dL Urine Glucose (UA) (NEGATIVE) mg/dL Urine Ketones (NEGATIVE) mg/dL Urine Occult Blood (NEGATIVE) Urine Nitrite (NEGATIVE) Urine Bilirubin (NEGATIVE) Urine Urobilinogen (NORMAL) E.U./dL Ur Leukocyte Esterase (NEGATIVE) Urine RBC (0-5) /HPF Urine WBC (0-3) /HPF Ur Squamous Epith Cells (<= Few) Urine Bacteria (None Seen) /HPF Urine Casts /LPF Urine Culture Comments Urine Creatinine mg/dL Urine Sodium mmol/L 01/12/24 01/12/24 01/12/24 Range/Units 21:00 21:00 18:42 WBC (4.8-10.8) x10^3/uL RBC (4.70-6.10) 10^6/uL Hgb (14.0-18.0) g/dL Hct (42.0-52.0) % MCV (80.0-94.0) fL MCH (27.0-31.0) pg MCHC (32.0-36.0) g/dL RDW (12.0-15.0) % Plt Count (130-450) 10^3/uL MPV (7.4-11.4) fL Reticulocyte % (Auto) (0.5-2.3) % Neut # (Auto) (1.5-6.6) 10^3/uL Lymph # (Auto) (1.5-3.5) 10^3/uL [place] # (Auto) (0.0-1.0) 10^3/uL Eos # (Auto) (0.0-0.7) 10^3/uL Baso # (Auto) (0.0-0.1) 10^3/uL Absolute Nucleated RBC x10^3/uL Nucleated RBC % /100WBC Manual Slide Review Platelet Estimate (NORMAL) Platelet Morphology (NORMAL) Absolute Retic (0.020-0.110) 10^6/uL APTT (24.9-33.3) secs D-Dimer (200.0-255.0) ng/mL Sodium (135-145) mmol/L Potassium (3.5-4.5) mmol/L Chloride (101-111) mmol/L Carbon Dioxide (21-32) mmol/L Anion Gap (6-13) BUN (6-20) mg/dL Creatinine (0.6-1.3) mg/dL Estimated GFR (MDRD) (>89) Glucose (74-104) mg/dL Estimat Average Glucose (70-100) mg/dL Hemoglobin A1c % (4.27-6.07) % Calcium (8.5-10.3) mg/dL Magnesium (1.7-2.3) mg/dL Lactate Dehydrogenase (140-271) IU/L Total Creatine Kinase 328 H (30-223) IU/L Troponin I High Sens (2.3-19.7) ng/L Triglycerides mg/dL Cholesterol ( - 200) mg/dL LDL Cholesterol, Calc ( - 129) mg/dL VLDL Cholesterol mg/dL HDL Cholesterol (60 - ) mg/dL LDL/HDL Ratio (<3.6) Cholesterol/HDL Ratio (<5.0) Vitamin B12 (180-914) pg/mL Folate (5.90 - >24.8) ng/mL TSH (0.34-5.60) uIU/mL Urine Color YELLOW Urine Clarity CLEAR (CLEAR) Urine pH 6.0 (5.0-7.5) PH Ur Specific [place] 1.010 (1.002-1.030) Urine Protein NEGATIVE (NEGATIVE) mg/dL Urine Glucose (UA) NEGATIVE (NEGATIVE) mg/dL Urine Ketones NEGATIVE (NEGATIVE) mg/dL Urine Occult Blood SMALL H (NEGATIVE) Urine Nitrite NEGATIVE (NEGATIVE) Urine Bilirubin NEGATIVE (NEGATIVE) Urine Urobilinogen 0.2 (NORMAL) (NORMAL) E.U./dL Ur Leukocyte Esterase NEGATIVE (NEGATIVE) Urine RBC 11-25 H (0-5) /HPF Urine WBC 0-3 (0-3) /HPF Ur Squamous Epith Cells RARE Squamous (<= Few) Urine Bacteria None Seen (None Seen) /HPF Urine Casts 0-2 Hyaline Casts /LPF Urine Culture Comments NOT INDICATED Urine Creatinine 91.1 mg/dL Urine Sodium 40.5 mmol/L 01/12/24 01/12/24 01/12/24 Range/Units 18:42 18:42 18:42 WBC (4.8-10.8) x10^3/uL RBC (4.70-6.10) 10^6/uL Hgb (14.0-18.0) g/dL Hct (42.0-52.0) % MCV (80.0-94.0) fL MCH (27.0-31.0) pg MCHC (32.0-36.0) g/dL RDW (12.0-15.0) % Plt Count (130-450) 10^3/uL MPV (7.4-11.4) fL Reticulocyte % (Auto) (0.5-2.3) % Neut # (Auto) (1.5-6.6) 10^3/uL Lymph # (Auto) (1.5-3.5) 10^3/uL [place] # (Auto) (0.0-1.0) 10^3/uL Eos # (Auto) (0.0-0.7) 10^3/uL Baso # (Auto) (0.0-0.1) 10^3/uL Absolute Nucleated RBC x10^3/uL Nucleated RBC % /100WBC Manual Slide Review Platelet Estimate (NORMAL) Platelet Morphology (NORMAL) Absolute Retic (0.020-0.110) 10^6/uL APTT (24.9-33.3) secs D-Dimer 849.4 H (200.0-255.0) ng/mL Sodium (135-145) mmol/L Potassium (3.5-4.5) mmol/L Chloride (101-111) mmol/L Carbon Dioxide (21-32) mmol/L Anion Gap (6-13) BUN (6-20) mg/dL Creatinine (0.6-1.3) mg/dL Estimated GFR (MDRD) (>89) Glucose (74-104) mg/dL Estimat Average Glucose 128 H (70-100) mg/dL Hemoglobin A1c % 6.1 H (4.27-6.07) % Calcium (8.5-10.3) mg/dL Magnesium (1.7-2.3) mg/dL Lactate Dehydrogenase (140-271) IU/L Total Creatine Kinase (30-223) IU/L Troponin I High Sens (2.3-19.7) ng/L Triglycerides mg/dL Cholesterol ( - 200) mg/dL LDL Cholesterol, Calc ( - 129) mg/dL VLDL Cholesterol mg/dL HDL Cholesterol (60 - ) mg/dL LDL/HDL Ratio (<3.6) Cholesterol/HDL Ratio (<5.0) Vitamin B12 (180-914) pg/mL Folate (5.90 - >24.8) ng/mL TSH 1.66 (0.34-5.60) uIU/mL Urine Color Urine Clarity (CLEAR) Urine pH (5.0-7.5) PH Ur Specific [place] (1.002-1.030) Urine Protein (NEGATIVE) mg/dL Urine Glucose (UA) (NEGATIVE) mg/dL Urine Ketones (NEGATIVE) mg/dL Urine Occult Blood (NEGATIVE) Urine Nitrite (NEGATIVE) Urine Bilirubin (NEGATIVE) Urine Urobilinogen (NORMAL) E.U./dL Ur Leukocyte Esterase (NEGATIVE) Urine RBC (0-5) /HPF Urine WBC (0-3) /HPF Ur Squamous Epith Cells (<= Few) Urine Bacteria (None Seen) /HPF Urine Casts /LPF Urine Culture Comments Urine Creatinine mg/dL Urine Sodium mmol/L 01/12/24 01/12/24 01/12/24 Range/Units 18:42 18:42 18:01 WBC (4.8-10.8) x10^3/uL RBC (4.70-6.10) 10^6/uL Hgb (14.0-18.0) g/dL Hct (42.0-52.0) % MCV (80.0-94.0) fL MCH (27.0-31.0) pg MCHC (32.0-36.0) g/dL RDW (12.0-15.0) % Plt Count (130-450) 10^3/uL MPV (7.4-11.4) fL Reticulocyte % (Auto) (0.5-2.3) % Neut # (Auto) (1.5-6.6) 10^3/uL Lymph # (Auto) (1.5-3.5) 10^3/uL [place] # (Auto) (0.0-1.0) 10^3/uL Eos # (Auto) (0.0-0.7) 10^3/uL Baso # (Auto) (0.0-0.1) 10^3/uL Absolute Nucleated RBC x10^3/uL Nucleated RBC % /100WBC Manual Slide Review Platelet Estimate (NORMAL) Platelet Morphology (NORMAL) Absolute Retic (0.020-0.110) 10^6/uL APTT 31.3 (24.9-33.3) secs D-Dimer (200.0-255.0) ng/mL Sodium 138 (135-145) mmol/L Potassium 4.2 (3.5-4.5) mmol/L Chloride 103 (101-111) mmol/L Carbon Dioxide 24 (21-32) mmol/L Anion Gap 11.0 (6-13) BUN 20 (6-20) mg/dL Creatinine 1.9 H (0.6-1.3) mg/dL Estimated GFR (MDRD) 36 L (>89) Glucose 97 (74-104) mg/dL Estimat Average Glucose (70-100) mg/dL Hemoglobin A1c % (4.27-6.07) % Calcium 8.4 L (8.5-10.3) mg/dL Magnesium 1.5 L (1.7-2.3) mg/dL Lactate Dehydrogenase (140-271) IU/L Total Creatine Kinase (30-223) IU/L Troponin I High Sens 14.7 (2.3-19.7) ng/L Triglycerides mg/dL Cholesterol ( - 200) mg/dL LDL Cholesterol, Calc ( - 129) mg/dL VLDL Cholesterol mg/dL HDL Cholesterol (60 - ) mg/dL LDL/HDL Ratio (<3.6) Cholesterol/HDL Ratio (<5.0) Vitamin B12 (180-914) pg/mL Folate (5.90 - >24.8) ng/mL TSH (0.34-5.60) uIU/mL Urine Color Urine Clarity (CLEAR) Urine pH (5.0-7.5) PH Ur Specific [place] (1.002-1.030) Urine Protein (NEGATIVE) mg/dL Urine Glucose (UA) (NEGATIVE) mg/dL Urine Ketones (NEGATIVE) mg/dL Urine Occult Blood (NEGATIVE) Urine Nitrite (NEGATIVE) Urine Bilirubin (NEGATIVE) Urine Urobilinogen (NORMAL) E.U./dL Ur Leukocyte Esterase (NEGATIVE) Urine RBC (0-5) /HPF Urine WBC (0-3) /HPF Ur Squamous Epith Cells (<= Few) Urine Bacteria (None Seen) /HPF Urine Casts /LPF Urine Culture Comments Urine Creatinine mg/dL Urine Sodium mmol/L Sepsis Event Note (H) - Evaluation Current Stage of Sepsis: Ruled out Assessment/Plan - Problem List (1) Syncope and collapse Impression: His syncope is likely multifactorial in nature. Given his recent viral gastroenteritis with significant nausea, vomiting and diarrhea earlier this week , he has evidence of volume depletion given his acute kidney injury. This is likely the main cause for syncope however he does have new onset atrial fibrillation with RVR and an arrhythmogenic cause is possible as well. While less likely, a pulmonary embolism is a possibility given his significant chronic lymphedema and poor mobility. -Will monitor on telemetry and treat his atrial fibrillation as noted below. -Troponins went from 16.0 --> 14.7. -D-dimer elevated to 850. Checking venous duplex studies. Consider CTA Chest once renal function improves. Cannot empirically anticoagulate given his thrombocytopenia. -TTE ordered. -Continue IV fluids. (2) Atrial fibrillation with RVR Impression: This represents new onset atrial fibrillation for him. This may be why he was having some chest tightness and may have contributed to his syncope. -Monitor on telemetry. -Troponins remained negative. -Obtain TTE. If he has systolic dysfunction, he will need further ischemic evaluation. -TSH normal. A1c 6.1%. -Placed on Toprol XL 50 mg yesterday, will increase to 100 mg Toprol XL daily today. -Cannot place on anticoagulation at this time given his thrombocytopenia. Awaiting TTE for final CHADS scoring. (3) ALEX (acute kidney injury) Impression: His acute kidney injury is likely secondary to prerenal causes from his dehydration secondary to his viral gastroenteritis. Medication side effects from losartan and furosemide are also contributing in the setting of dehydration. Less likely to be ATN. -Renal ultrasound pending. -Avoid unnecessary nephrotoxins. -Hold home losartan and furosemide. -CK minimally elevated, but not contributing to current issue. -Creatinine is improving with IV fluids, suspect pre-renal causes as most likely cause. (4) Chronic idiopathic thrombocytopenia Impression: He follows with a disease intervention specialist in [place] however he does not recall the name of the disease intervention specialist. He denies having any active medications or therapies directed at his ITP. -Reportedly his platelet count baseline is 50-100 but this is not clear as we have no prior records. -Currently platelet count is decreasing to 21. Will hold any pharmacologic DVT prophylaxis or treatment and avoid NSAIDs. -Monitor daily CBC. -Given his drop in platelet count and other acute illnesses, will initiate pulse-dose Dexamethasone with 40 mg PO daily for 4 days. (5) Pancytopenia Impression: Unclear if he has had pancytopenia in the past. He follows with hematology in [facility] for his ITP, though he cannot recall their name. -Currently he is leukopenic but not neutropenic. -His anemia is stable around 10.4. -His platelet counts are decreasing as noted above under his ITP diagnosis. -His TSH is normal. Will check vitamin B12, folate, reticulocyte count, uric acid and LDH levels. (6) Lymphedema Impression: He has a longstanding history of chronic lymphedema and follows in the wound clinic due to chronic venous stasis ulcerations. -Will obtain lower extremity venous Doppler to rule out DVT. (7) Cardiomegaly Impression: This is noted on his chest x-ray. Denies any history of CHF or other cardiac conditions. -Obtaining TTE as noted under his atrial fibrillation problem. (8) Essential hypertension Impression: Uncontrolled. -Continue holding Losartan given ALEX, possibly able to resume in 1-2 days. -On Metoprolol XL as noted above, increasing dose to 100 mg daily. -Adding Amlodipine 5 mg daily. (9) Prediabetes Impression: Has been on metformin in the past however he indicates he is not taking this anymore and denies having diabetes. -A1c is 6.1%. (10) Seizure disorder Impression: Denies having any recent seizures issues and no reports of seizure-like activity during his syncopal event at the time of presentation. -Monitor for now but no need for seizure workup. -Resume home zonisamide 100 mg twice daily.
[2024-01-13] MEDS: amLODIPine 5 MG TABLET PO SCH (14:55)
[2024-01-13] MEDS: PATIENT OWN MED PO SCH (21:04)
--- NOTE | 2024-01-13 23:27 | Ultrasound Report ---
PROCEDURE: Renal (Retroperitoneal) INDICATIONS: ALEX, eval for hydronephrosis TECHNIQUE: Real-time scanning was performed of the retroperitoneal organs, with image documentation. COMPARISON: Right upper quadrant ultrasound dated 11/13/2018. FINDINGS: Kidneys: Kidneys are normal in size. Right kidney measures 12.7 cm long; left kidney measures 12.5 cm long. Right renal cortical thickness is 1.8 cm; left renal cortical thickness is 1.7 cm. No jackie d masses, hydronephrosis, or nephrolithiasis. Bladder: The urinary bladder was not evaluated for this examination. Miscellaneous: No free abdominal fluid. IMPRESSION: No sonographic evidence for obstructive uropathy/hydronephrosis. Normal appearance of the bilateral k idneys. Reviewed by: Tam Aparicio MD on 01/13/2024 11:25 PM PDT Approved by: Tam Aparicio MD on 01/13/2024 11:25 PM PDT Station ID: [id number]
--- NOTE | 2024-01-13 23:58 | Ultrasound Report ---
PROCEDURE: Duplex Ext Veins Bilateral INDICATIONS: Solo Phillips MD TECHNIQUE: Real-time imaging, as well as color and pulse Doppler interrogation, were performed of the deep veins of both legs from the inguinal ligament to the popliteal fossa. Attempted visualization of the calf veins was performed. COMPARISON: 01/02/2020 FINDINGS: The deep veins are normally compressible, and free of intraluminal thrombus. Color and pu lse Doppler demonstrate normal phasic intravascular flow. There is normal augmentation response to d istal compression maneuver. IMPRESSION: No deep venous thrombosis of the visualized lower extremities. Reviewed by: Tam Aparicio MD on 01/13/2024 11:57 PM PDT Approved by: Tam Aparicio MD on 01/13/2024 11:57 PM PDT Station ID: [id number]
[2024-01-14 05:07] LABS: BASOPHILS % (AUTO) 0.2 %; HCT - HEMATOCRIT 33.5 % (42.0-52.0); HGB - HEMOGLOBIN 10.7 g/dL (14.0-18.0); LYMPHOCYTES # (AUTO) 0.4 10^3/uL (1.5-3.5); LYMPHOCYTES % (AUTO) 8.7 %; MEAN CORPUSCULAR HEMOGLOBIN 29.3 pg (27.0-31.0); MEAN CORPUSCULAR HGB CONC 31.9 g/dL (32.0-36.0); MEAN CORPUSCULAR VOLUME 91.8 fL (80.0-94.0); MONOCYTES # (AUTO) 0.2 10^3/uL (0.0-1.0); MONOCYTES % (AUTO) 3.4 %; NEUTROPHILS # (AUTO) 3.9 10^3/uL (1.5-6.6); NEUTROPHILS % (AUTO) 87.3 %; RED BLOOD COUNT 3.65 10^6/uL (4.70-6.10); WHITE BLOOD COUNT 4.5 x10^3/uL (4.8-10.8)
[2024-01-14 05:31] LABS: URIC ACID 6.9 mg/dL (4.4-7.6)
[2024-01-14 05:33] LABS: PLT - PLATELET COUNT 33 10^3/uL (130-450); SLIDE REVIEW? Indicated
[2024-01-14 05:37] LABS: CALCIUM 8.4 mg/dL (8.5-10.3); CREATININE 1.3 mg/dL (0.6-1.3); POTASSIUM 4.6 mmol/L (3.5-4.5)
[2024-01-14 07:28] LABS: PLATELET ESTIMATE, MANUAL DECREASED (<130,000) (NORMAL); PLATELET MORPHOLOGY NORMAL APPEARANCE (NORMAL); RBC MORPHOLOGY (MULTIPLE) NORMAL APPEARANCE (NORMAL); WBC MORPHOLOGY (MULTIPLE) NORMAL APPEARANCE (NORMAL)
[2024-01-14] MEDS: INSULIN LISPRO 300 UNIT/3 ML PEN SUBQ SCH (08:14)
[2024-01-14] MEDS: METOPROLOL SUCCINATE 50 MG TABLET PO SCH ×2 (08:15→22:22)
[2024-01-14] MEDS: FOLIC ACID 1 MG TABLET PO SCH (08:20)
[2024-01-14] MEDS ORDERED: iohexoL-300 100 ML VIAL ONE (08:34)
--- NOTE | 2024-01-14 10:32 | PROVIDER PROGRESS NOTE ---
Subjective - Prog Note Date Prog Note Date: 01/14/24 Prog Note Time: 10:29 - Subjective Pt reports feeling: Improved Subjective: No acute events overnight. His heart rate remains 80-100 at rest, which is better than yesterday, though he does get tachycardic to the 120s with exertion. He overall feels improved and denies any pleurisy, orthopnea, PND, cough, nausea, vomiting or diaphoresis. He has occasional chest tightness that usually is associated with when he is having a faster heart rate. Denies having significant palpitations. His platelet count is increasing to 33 after initiation of steroid and his creatinine has improved to 1.3. His renal ultrasound was unremarkable and bilateral lower extremity venous duplex was negative for DVT. We are awaiting an echocardiogram tomorrow. Objective - Vital Signs/Intake & Output Reviewed Vital Signs: Yes Vital Signs: Vital Signs x48h Temp Pulse Resp BP Pulse Ox 01/14/24 09:00 37.1 C 106 H 20 150/86 H 99 01/14/24 04:33 37.1 C 103 H 18 134/97 H 98 Intake & Output: Intake & Output 01/11/24 01/12/24 01/13/24 01/14/24 23:59 23:59 23:59 23:59 Intake Total 2102 5390 1215.833 Output Total 1250 1845 725 Balance 852 3545 490.833 - Objective General Appearance: positive: No acute distress, Alert, Other (Mildly tremulous) Eyes Bilateral: positive: Normal inspection ENT: positive: ENT inspection nml, Pharynx nml, No signs of dehydration Neck: positive: Nml inspection, Thyroid nml, No JVD, Trachea midline Respiratory: positive: Chest non-tender, No respiratory distress, Breath sounds nml. negative: Wheezes, Rales, Rhonchi Cardiovascular: positive: No murmur, No gallop, Irregularly irregular Abdomen: positive: Non-tender, No organomegaly, Nml bowel sounds, No distention Skin: positive: Warm, Dry, Skin rash (Chronic venous stasis dermatitis changes of bilateral lower extremities) Extremities: positive: Non-tender, Pedal edema (Significant 3-4+ pitting lymphedema that is chronic in nature) Neurologic/Psychiatric: positive: Oriented x3, CN's nml (2-12), Motor nml, Sensation nml - Lab Results Fish Bones: 01/14/24 04:50 01/14/24 04:50 Other Labs: Lab Results x24hrs 01/14/24 01/14/24 Range/Units 04:50 04:50 WBC 4.5 L (4.8-10.8) x10^3/uL RBC 3.65 L (4.70-6.10) 10^6/uL Hgb 10.7 L (14.0-18.0) g/dL Hct 33.5 L (42.0-52.0) % MCV 91.8 (80.0-94.0) fL MCH 29.3 (27.0-31.0) pg MCHC 31.9 L (32.0-36.0) g/dL RDW 19.0 H (12.0-15.0) % Plt Count 33 L* (130-450) 10^3/uL MPV 10.0 (7.4-11.4) fL Neut # (Auto) 3.9 (1.5-6.6) 10^3/uL Lymph # (Auto) 0.4 L (1.5-3.5) 10^3/uL [place] # (Auto) 0.2 (0.0-1.0) 10^3/uL Eos # (Auto) 0.0 (0.0-0.7) 10^3/uL Baso # (Auto) 0.0 (0.0-0.1) 10^3/uL Absolute Nucleated RBC 0.00 x10^3/uL Nucleated RBC % 0.0 /100WBC Manual Slide Review Indicated WBC Morphology NORMAL APPEARANCE (NORMAL) Platelet Estimate DECREASED (<130,000) (NORMAL) Platelet Morphology NORMAL APPEARANCE (NORMAL) RBC Morph Micro Appear NORMAL APPEARANCE (NORMAL) Sodium 138 (135-145) mmol/L Potassium 4.6 H (3.5-4.5) mmol/L Chloride 105 (101-111) mmol/L Carbon Dioxide 21 (21-32) mmol/L Anion Gap 12.0 (6-13) BUN 27 H (6-20) mg/dL Creatinine 1.3 (0.6-1.3) mg/dL Estimated GFR (MDRD) 56 L (>89) Glucose 150 H (74-104) mg/dL Uric Acid 6.9 (4.4-7.6) mg/dL Calcium 8.4 L (8.5-10.3) mg/dL - Diagnostic Imaging Diagnostic Imaging Results: positive: Final report reviewed Diagnostic Imaging Comments: Renal Ultrasound: No sonographic evidence of obstructive uropathy/hydronephrosis. Normal appearance of the bilateral kidneys. Bilateral Lower Extremity Venous Duplex: No deep venous thrombosis of the visualized lower extremities. Sepsis Event Note (H) - Evaluation Current Stage of Sepsis: Ruled out Assessment/Plan - Problem List (1) Syncope and collapse Impression: His syncope is likely multifactorial in nature. Given his recent viral gastroenteritis with significant nausea, vomiting and diarrhea earlier this week, he has evidence of volume depletion given his acute kidney injury. This is likely the main cause for syncope however he does have new onset atrial fibrillation with RVR and an arrhythmogenic cause is possible as well. While less likely, a pulmonary embolism is a possibility given his significant chronic lymphedema and poor mobility. -Will monitor on telemetry and treat his atrial fibrillation as noted below. -Troponins went from 16.0 --> 14.7. Lower suspicion for CAD as a cause. -D-dimer elevated to 850. Venous duplex study negative for DVT. Obtain CTA Chest to rule out PE now that creatinine has improved. Cannot empirically ant icoagulate given his thrombocytopenia. -TTE ordered, will obtain tomorrow. -Discontinue IV fluids. (2) Atrial fibrillation with RVR Impression: This represents new onset atrial fibrillation for him. This may be why he was having some chest tightness and may have contributed to his syncope. -Monitor on telemetry. -Troponins remained negative. -Obtain TTE. If he has systolic dysfunction, he will need further ischemic evaluation. Otherwise can plan on outpatient NM Stress test once clinically improved. -TSH normal. A1c 6.1%. -Metoprolol XL increased to 100 mg daily yesterday. HR improved, but still not optimal. Add Metoprolol XL 50 mg qPM (will be 100 mg qAM and 50 mg qPM). -Cannot place on anticoagulation at this time given his thrombocytopenia. Awaiting TTE for final CHADS scoring. (3) ALEX (acute kidney injury) Impression: His acute kidney injury is likely secondary to prerenal causes from his dehydra tion secondary to his viral gastroenteritis. Medication side effects from losartan and furosemide are also contributing in the setting of dehydration. Less likely to be ATN. -Renal ultrasound unremarkable. -Avoid unnecessary nephrotoxins. -Continue to hold home losartan and furosemide. -CK minimally elevated, but not contributing to current issue. -Creatinine has improved to 1.3, almost baseline. Discontinue IV fluids. (4) Chronic idiopathic thrombocytopenia Impression: He follows with a user acceptance tester in [place] however he does not recall the name of the user acceptance tester, but has a follow up scheduled with him soon. He denies having any active medications or therapies directed at his ITP. -Reportedly his platelet count baseline is 50-100 but this is not clear as we have no prior records. -Will hold any pharmacologic DVT prophylaxis or treatment and avoid NSAIDs. -Given his drop in platelet count to a jodi of 21 and other acute illnesses, we initiated pulse-dose Dexamethasone with 40 mg PO daily for 4 days starting on 01/13/24. -Platelets have improved to 33 today. Check daily CBC. -SSI while on high-dose steroids. (5) Pancytopenia Impression: Unclear if he has had pancytopenia in the past. He follows with hematology in [facility] for his ITP. -Currently he is leukopenic but not neutropenic. -His anemia is stable. -His platelet counts are worse than baseline as noted above under his ITP d iagnosis. -His TSH, Uric acid is normal. LDH elevated at 346. He has Folate deficiency (folate 5.1), which can be contributing. B12 is 402. -Place on Folic Acid supplements. Outpatient hematology can review further. (6) Lymphedema Impression: He has a longstanding history of chronic lymphedema and follows in the wound clinic due to chronic venous stasis ulcerations. -Venous duplex negative for DVT bilaterally. -Holding lasix as noted above. (7) Cardiomegaly Impression: This is noted on his chest x-ray. Denies any history of CHF or other cardiac conditions. -Obtaining TTE as noted under his atrial fibrillation problem. (8) Essential hypertension Impression: Uncontrolled. -Continue holding Losartan given ALEX, possibly able to resume in 1-2 days. -On Metoprolol XL as noted above (100 mg qAM and adding 50 mg qPM). -Continue Amlodipine 5 mg daily. (9) Prediabetes Impression: Has been on metformin in the past however he indicates he is not taking this anymore and denies having diabetes. -A1c is 6.1%. (10) Seizure disorder Impression: Denies having any recent seizures issues and no reports of seizure-like activity during his syncopal event at the time of presentation. -Monitor for now but no need for seizure workup. -Resume home zonisamide 100 mg twice daily.
[2024-01-14] MEDS: iohexoL-300 100 ML VIAL IVP ONE (11:22)
[2024-01-14] MEDS: NYSTATIN POWDER 15 GM TOP SCH (11:33)
--- NOTE | 2024-01-14 12:03 | CT Report ---
PROCEDURE: Angio Chest INDICATIONS: Chest pain, elevated D-Dimer, syncope. Eval for PE CONTRAST: 80ml omni 300 TECHNIQUE: After the administration of intravenous contrast, 2 mm axial images were acquired from the pulmonary apices to the posterior costophrenic angles during the arterial phase. In addition, 1 mm lung kernel and 5 mm soft tissue kernel reconstructions were performed. 3-dimensional coronal oblique maximum int ensity projection (MIP) reformats, 8 mm axial MIP, and 5 mm coronal and sagittal MPR reformats were t hen performed through the thorax. For radiation dose reduction, the following was used: automated exp osure control, adjustment of mA and/or kV according to patient size. COMPARISON: None. FINDINGS: Image quality: Excellent. Large vessels: No filling defects within the opacified pulmonary arteries, accounting for motion and contrast timing. No evidence of acute aortic syndrome or aortic aneurysm. Lungs and pleura: No consolidation. No pleural effusions. No pneumothorax. No suspicious pulmonary n odules which require follow up. Mediastinum: Heart size is normal. No pericardial effusion. No large vessel abnormality. No mediastin al adenopathy by size criteria. Chest wall and lower neck: Thyroid is unremarkable. No axillary or supraclavicular adenopathy by size . Bones: No aggressive osseous abnormality. Upper Abdomen: Unremarkable. IMPRESSION: No pulmonary embolus or other CT evidence for etiology of the patient's symptoms. Reviewed by: Lisa De Jesus MD on 01/14/2024 11:01 AM ROBBY Approved by: Lisa De Jesus MD on 01/14/2024 11:01 AM ROBBY Station ID: [id number]
[2024-01-14] MEDS: LORazepam 2 MG/ML VIAL IVP SCH (23:17)
[2024-01-15] MEDS: LORazepam 2 MG/ML VIAL IVP PRN ×3 (02:00→09:41)
[2024-01-15 04:50] LABS: BASOPHILS % (AUTO) 0.1 %; HCT - HEMATOCRIT 32.7 % (42.0-52.0); HGB - HEMOGLOBIN 10.7 g/dL (14.0-18.0); LYMPHOCYTES # (AUTO) 0.7 10^3/uL (1.5-3.5); MEAN CORPUSCULAR HEMOGLOBIN 29.8 pg (27.0-31.0); MEAN CORPUSCULAR HGB CONC 32.7 g/dL (32.0-36.0); MEAN CORPUSCULAR VOLUME 91.1 fL (80.0-94.0); MONOCYTES # (AUTO) 0.5 10^3/uL (0.0-1.0); MONOCYTES % (AUTO) 6.4 %; NEUTROPHILS # (AUTO) 5.9 10^3/uL (1.5-6.6); NEUTROPHILS % (AUTO) 82.2 %; PLT - PLATELET COUNT 45 10^3/uL (130-450); RED BLOOD COUNT 3.59 10^6/uL (4.70-6.10); RED CELL DISTRIBUTION WIDTH 19.6 % (12.0-15.0); WHITE BLOOD COUNT 7.2 x10^3/uL (4.8-10.8)
[2024-01-15 05:30] LABS: CALCIUM 8.5 mg/dL (8.5-10.3); CREATININE 1.5 mg/dL (0.6-1.3); POTASSIUM 4.4 mmol/L (3.5-4.5)
[2024-01-15] MEDS: HALOPERIDOL 5 MG/ML VIAL IM STA (05:59)
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
--- NOTE | 2024-01-15 06:57 | PROVIDER PROGRESS NOTE ---
Restraint [id number] - Immediate Situation Face to Face Evaluation Date: 01/15/24 Face to Face Evaluation Time: 06:56 Restraint Classification: Violent, physical - Patient's Reaction & Behaviors Safety: Physically unsafe, Unable to Follow Commands Verbal: Demanding, Screaming/Yelling Harm: Actual harm to self, Potential harm to others, Verbalizes intent to harm Physical: Aggressive behavior, Punching, Kicking Other: Disruption of therapy, Attempting removal of medically necessary device(s) - Behavioral Condition Attitude: Guarded Behavior: Uncooperative, Belligerent, Agitated Orientation: Person Mood: Angry - Evaluation Current Medical Condition Relating to Need for Restraint: Alcohol Withdrawal with Delirium Tremens Pertinent History/Illicit Drugs/Medications/Results: Alcohol abuse and history of alcohol withdrawal in the past - Plan Need to Initiate/Renew Violent or Chemical Restraint: Need to initiate restraints to maintain patient and staff safety. Instituting alcohol withdrawal treatment with medications and transfer to ICU.
[2024-01-15] MEDS: LORazepam 2 MG/ML VIAL IM STA (06:59)
[2024-01-15] MEDS ORDERED: ALBUTEROL NEB 2.5 MG/3 ML INH PRN (07:09)
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
[2024-01-15 07:52] LABS: ALBUMIN 3.5 g/dL (3.2-5.5); BILIRUBIN,DIRECT 0.74 mg/dL (0.03-0.18); BILIRUBIN,TOTAL 1.7 mg/dL (0.2-1.0); MAGNESIUM 1.3 mg/dL (1.7-2.3); PHOSPHORUS 4.9 mg/dL (2.5-5.0); TOTAL PROTEIN 6.7 g/dL (6.4-8.9)
[2024-01-15 08:22] LABS: INR 1.5 (0.8-1.2); PT - PROTHROMBIN TIME 15.9 secs (9.9-12.6)
[2024-01-15] MEDS: DEXMEDETOMIDINE 400 MCG/100 ML 100 ML IV PRN (10:35)
--- NOTE | 2024-01-15 10:45 | PROVIDER PROGRESS NOTE ---
Restraint [id number] - Immediate Situation Face to Face Evaluation Date: 01/15/24 Face to Face Evaluation Time: 10:42 Restraint Classification: Violent, physical, chemical - Patient's Reaction & Behaviors Safety: Physically unsafe Verbal: Demanding, Swearing Harm: Potential harm to self, Potential harm to others, Verbalizes intent to harm Physical: Aggressive behavior, Fighting restraints, Punching, Kicking Other: Disruption of therapy, Attempting removal of medically necessary device(s) - Behavioral Condition Attitude: Indifferent Attitude Comment: Agitated and aggressive Behavior: Uncooperative, Belligerent, Agitated Orientation: Disoriented to all Mood: Angry, Anxious - Evaluation Current Medical Condition Relating to Need for Restraint: Alcohol Withdrawal with Delirium Tremens Pertinent History/Illicit Drugs/Medications/Results: Alcohol abuse and history of alcohol withdrawal in the past - Plan Need to Initiate/Renew Violent or Chemical Restraint: Renewing violent restraints at this time due to ongoing aggressive behaviors and potential for self/staff harm. Instituting additional medications to help with alcohol withdrawal.
[2024-01-15] MEDS: SODIUM CHLORIDE FLUSH 0.9% 10 ML SYRINGE IVP SCH (10:49)
[2024-01-15] MEDS: MULTIVITAMIN 10 ML, THIAMINE INJ 100 MG, FOLIC ACID INJ 1 MG in SODIUM CHLORIDE 0.9% 1,... IV SCH (14:41)
[2024-01-15] MEDS: ZONISAMIDE 100MG CAPS PO SCH (20:09)
[2024-01-16] MEDS: METOPROLOL 5 MG/5 ML VIAL IVP PRN (03:08)
[2024-01-16 04:56] LABS: BASOPHILS % (AUTO) 0.1 %; HCT - HEMATOCRIT 35.6 % (42.0-52.0); HGB - HEMOGLOBIN 11.2 g/dL (14.0-18.0); LYMPHOCYTES # (AUTO) 0.6 10^3/uL (1.5-3.5); LYMPHOCYTES % (AUTO) 7.9 %; MEAN CORPUSCULAR HEMOGLOBIN 29.3 pg (27.0-31.0); MEAN CORPUSCULAR HGB CONC 31.5 g/dL (32.0-36.0); MEAN CORPUSCULAR VOLUME 93.2 fL (80.0-94.0); MEAN PLATELET VOLUME 10.4 fL (7.4-11.4); MONOCYTES # (AUTO) 0.7 10^3/uL (0.0-1.0); MONOCYTES % (AUTO) 9.6 %; NEUTROPHILS # (AUTO) 6.2 10^3/uL (1.5-6.6); NEUTROPHILS % (AUTO) 81.1 %; PLT - PLATELET COUNT 51 10^3/uL (130-450); RED BLOOD COUNT 3.82 10^6/uL (4.70-6.10); RED CELL DISTRIBUTION WIDTH 20.1 % (12.0-15.0); WHITE BLOOD COUNT 7.7 x10^3/uL (4.8-10.8)
[2024-01-16 05:11] LABS: MAGNESIUM 1.3 mg/dL (1.7-2.3); PHOSPHORUS 4.1 mg/dL (2.5-5.0)
[2024-01-16 05:29] LABS: CALCIUM, IONIZED 1.03 mmol/L (1.15-1.33); VBG PH 7.357 (7.31-7.41)
[2024-01-16 05:39] LABS: SLIDE REVIEW? Indicated
[2024-01-16] MEDS: MAGNESIUM SULFATE 2 GRAM 2 GM/50 ML BAG IV ONE (06:05)
[2024-01-16 06:06] LABS: CALCIUM 8.1 mg/dL (8.5-10.3); CREATININE 1.3 mg/dL (0.6-1.3); POTASSIUM 4.1 mmol/L (3.5-4.5)
[2024-01-16 06:24] LABS: PLATELET ESTIMATE, MANUAL DECREASED (<130,000) (NORMAL)
--- NOTE | 2024-01-16 08:00 | PROVIDER PROGRESS NOTE ---
Assessment/Plan - Problem List (1) Alcohol withdrawal delirium Assessment/Plan: Impression: Precedex drip discontinued. Discontinue lorazepam and initiate p.o. Valium 10 mg every 2 hours as needed for CIWA score greater than 8 Patient continues to require hospitalization due to his severe alcohol withdrawal syndrome. (2) Syncope and collapse Impression: Etiology unclear and may be related to dehydration, arrhythmia event or vasovagal syncope. Continue to monitor. (3) Atrial fibrillation with RVR Impression: Increase metoprolol as tolerated. Toprol increased to 100 mg twice daily today. Consider initiating apixaban. Chad2 and Chadvasc score are both low. (4) ALEX (acute kidney injury) Impression: Resolving. Continue to monitor. Creatinine has decreased from 1.5-1.3. Renal ultrasound unremarkable. Avoid unnecessary nephrotoxins. Continue to hold home losartan and furosemide. (5) Chronic idiopathic thrombocytopenia Impression: He follows with a senior hadoop developer in [place] however he does not recall the name of the senior hadoop developer, but has a follow up scheduled with him soon. Thrombocytopenia appears to be improving. Platelet count today is 51K (6) Pancytopenia Impression: White blood cell count has normalized and he is mildly anemic. Platelet count continues to improve. Continue to monitor (7) Lymphedema Impression: He has a longstanding history of chronic lymphedema and follows in the wound clinic due to chronic venous stasis ulcerations. Venous duplex negative for DVT bilaterally. (8) Cardiomegaly Impression: Await Transthoracic echocardiogram (9) Essential hypertension Impression: Uncontrolled. Continue holding Losartan given ALEX. Metoprolol increased to 100 mg twice daily Continue Amlodipine 5 mg daily. Treat alcohol withdrawal as noted above. (10) Prediabetes Impression: Has been on metformin in the past however he indicates he is not taking this anymore and denies having diabetes. -A1c is 6.1%. (11) Seizure disorder Impression: Denies having any recent seizures issues and no reports of seizure-like activity during his syncopal event at the time of presentation. -Monitor for now but no need for seizure workup. -Continue home zonisamide 100 mg twice daily. - Current Meds Current Meds: Current Medications Generic Name Dose Route Start Last Admin Trade Name Freq PRN Reason Stop Dose Admin Amlodipine Besylate 5 mg 01/13/24 14:29 01/15/24 10:49 Amlodipine 5 Mg Tablet PO Not Given DAILY [facility] Guaifenesin 600 mg 01/13/24 09:00 01/15/24 20:09 Guaifenesin 600 Mg Tablet PO Not Given BID [facility] Multivitamins 10 ml/ Thiamine 1,011.2 mls @ 100 mls/hr 01/15/24 12:00 01/16/24 01:00 HCl 100 mg/ Folic Acid 1 mg/ IV Infused Sodium Chloride DAILY@1200 AYESHA Infusion Dexmedetomidine/Sodium Chloride 100 mls @ 8.05 mls/hr 01/15/24 10:06 01/16/24 05:08 Precedex Premix IV 0.9 mcg/kg/hr .[id number] PRN 36.225 mls/hr Agitation Administration Protocol 0.2 MCG/KG/HR Insulin Human Lispro 1 - 5 unit 01/14/24 08:00 01/15/24 21:43 Insulin Lispro 300 Unit/3 Ml Pen SUBQ Not Given 0800,1200,1700,2100 [facility] Protocol Lorazepam 2 mg 01/15/24 07:09 01/16/24 05:08 Lorazepam 2 Mg/Ml Vial IVP 2 mg Q30M PRN Administration CIWA >8 Protocol Metoprolol Succinate 100 mg 01/14/24 09:00 01/15/24 10:49 Metoprolol Succinate 50 Mg Tablet PO Not Given DAILY [facility] Metoprolol Succinate 50 mg 01/14/24 21:00 01/15/24 20:09 Metoprolol Succinate 50 Mg Tablet PO Not Given QPM [facility] Metoprolol Tartrate 10 mg 01/15/24 17:11 01/16/24 03:08 Metoprolol 5 Mg/5 Ml Vial IVP 10 mg Q6H PRN Administration Tachycardia Nystatin 1 applic 01/14/24 11:00 01/15/24 20:10 Nystatin Powder 15 Gm TOP 1 applic BID AYESHA Administration Patient Own Medication 1 each 01/15/24 21:00 01/15/24 20:09 Patient Own Med PO Not Given HS AYESHA Sodium Chloride 10 ml 01/15/24 09:00 01/16/24 02:51 Sodium Chloride Flush 0.9% 10 Ml Syringe IVP 10 ml 0100,0900,1700 [facility] Administration Throat Lozenges 1 lozenge 01/13/24 04:47 01/13/24 05:02 Benzocaine/Menthol Lozenge MM 1 lozenge Q2HR PRN Administration Throat pain - Lab Result Fish Bone Diagrams: 01/16/24 04:10 01/16/24 04:10 Subjective - Subjective Patient Reports: Other (Sedated. No following commands) Objective Vital Signs: Vital Signs - 24 hr 01/15/24 01/15/24 01/15/24 09:30 09:45 10:00 Temperature Heart Rate [ 153 H 156 H 151 H Brachial] Heart Rate [ Monitoring electrodes] Respiratory 27 H 21 Rate Blood Pressure Blood Pressure [Left Brachial artery] Blood Pressure 151/132 H 158/106 H 134/90 H [Right Brachial artery] O2 Saturation 94 27 L 98 If not protocol : Oxygen Flow, liters/minute 01/15/24 01/15/24 01/15/24 10:15 10:30 11:00 Temperature Heart Rate [ 138 H 118 H 116 H Brachial] Heart Rate [ Monitoring electrodes] Respiratory 21 15 16 Rate Blood Pressure Blood Pressure [Left Brachial artery] Blood Pressure 148/84 H 127/94 H 148/116 H [Right Brachial artery] O2 Saturation 97 90 L 94 If not protocol : Oxygen Flow, liters/minute 01/15/24 01/15/24 01/15/24 12:00 12:30 13:00 Temperature 36.4 C L Heart Rate [ 100 99 95 Brachial] Heart Rate [ Monitoring electrodes] Respiratory 13 17 16 Rate Blood Pressure Blood Pressure [Left Brachial artery] Blood Pressure 136/97 H 155/61 H 152/116 H [Right Brachial artery] O2 Saturation 95 99 97 If not protocol 3 : Oxygen Flow, liters/minute 01/15/24 01/15/24 01/15/24 13:30 14:00 14:30 Temperature Heart Rate [ 91 96 95 Brachial] Heart Rate [ Monitoring electrodes] Respiratory 16 16 15 Rate Blood Pressure Blood Pressure [Left Brachial artery] Blood Pressure 140/102 H 158/11 H 149/112 H [Right Brachial artery] O2 Saturation 94 92 91 L If not protocol 3 : Oxygen Flow, liters/minute 01/15/24 01/15/24 01/15/24 15:00 15:30 16:00 Temperature 36.2 C L Heart Rate [ 85 81 99 Brachial] Heart Rate [ Monitoring electrodes] Respiratory 15 15 17 Rate Blood Pressure Blood Pressure [Left Brachial artery] Blood Pressure 139/110 H 160/119 H 168/113 H [Right Brachial artery] O2 Saturation 92 91 L 90 L If not protocol : Oxygen Flow, liters/minute 01/15/24 01/15/24 01/15/24 16:30 17:00 17:30 Temperature Heart Rate [ 90 91 91 Brachial] Heart Rate [ Monitoring electrodes] Respiratory 17 18 17 Rate Blood Pressure Blood Pressure [Left Brachial artery] Blood Pressure 168/99 H 170/114 H 152/110 H [Right Brachial artery] O2 Saturation 90 L 93 92 If not protocol : Oxygen Flow, liters/minute 01/15/24 01/15/24 01/15/24 18:00 18:39 19:00 Temperature Heart Rate [ 87 79 93 Brachial] Heart Rate [ Monitoring electrodes] Respiratory 16 17 17 Rate Blood Pressure Blood Pressure [Left Brachial artery] Blood Pressure 160/97 H 157/103 H 160/105 H [Right Brachial artery] O2 Saturation 91 L 92 93 If not protocol : Oxygen Flow, liters/minute 01/15/24 01/15/24 01/15/24 20:17 21:00 22:00 Temperature 36.5 C 35.9 C L Heart Rate [ Brachial] Heart Rate [ 88 84 84 Monitoring electrodes] Respiratory 19 18 19 Rate Blood Pressure Blood Pressure 158/110 H [Left Brachial artery] Blood Pressure 158/100 H 155/93 H [Right Brachial artery] O2 Saturation 91 L 92 94 If not protocol : Oxygen Flow, liters/minute 01/15/24 01/16/24 01/16/24 23:00 00:00 01:00 Temperature 36.0 C L 36.1 C L 36.5 C Heart Rate [ Brachial] Heart Rate [ 90 85 97 Monitoring electrodes] Respiratory 20 20 26 H Rate Blood Pressure Blood Pressure 153/100 H 150/94 H 157/96 H [Left Brachial artery] Blood Pressure [Right Brachial artery] O2 Saturation 92 93 93 If not protocol : Oxygen Flow, liters/minute 01/16/24 01/16/24 01/16/24 02:00 03:00 03:08 Temperature Heart Rate [ Brachial] Heart Rate [ 108 H 92 Monitoring electrodes] Respiratory 21 21 Rate Blood Pressure 142/86 H Blood Pressure 157/100 H 142/86 H [Left Brachial artery] Blood Pressure [Right Brachial artery] O2 Saturation 94 92 If not protocol : Oxygen Flow, liters/minute 01/16/24 01/16/24 01/16/24 03:38 04:00 05:00 Temperature 37.8 C 37.7 C Heart Rate [ Brachial] Heart Rate [ 93 91 Monitoring electrodes] Respiratory 22 24 Rate Blood Pressure 156/96 H Blood Pressure 156/96 H 150/109 H [Left Brachial artery] Blood Pressure [Right Brachial artery] O2 Saturation 93 93 If not protocol : Oxygen Flow, liters/minute 01/16/24 01/16/24 06:00 07:00 Temperature 37.6 C 37.6 C Heart Rate [ Brachial] Heart Rate [ 94 103 H Monitoring electrodes] Respiratory 24 25 H Rate Blood Pressure Blood Pressure 154/101 H 156/97 H [Left Brachial artery] Blood Pressure [Right Brachial artery] O2 Saturation 92 91 L If not protocol : Oxygen Flow, liters/minute Oxygen O2 Source Room air I&O (Last 24 Hrs): Intake and Output Totals x24h 01/14/24 01/15/24 01/16/24 23:59 23:59 23:59 Intake Total 2985.833 660.871 3824.155 Output Total 1525 1145 890 Balance 1460.833 -968.169 327.155 General: No acute distress HEENT: Atraumatic, PERRLA Neck: No JVD Neuro: Alert, Non Focal Cardiovascular: Regular rate, Normal S1, Normal S2 Respiratory: Other (Good air exchange in all lung oleary no wheezing no crackles.) Abdomen: Normal bowel sounds, Other (Positive bowel sounds soft nontender nondistended) Extremities: No clubbing, No cyanosis Skin: No rashes - Results Results: Laboratory Results WBC 7.7 x10^3/uL (4.8-10.8) 01/16/24 04:10 RBC 3.82 10^6/uL (4.70-6.10) L 01/16/24 04:10 Hgb 11.2 g/dL (14.0-18.0) L 01/16/24 04:10 Hct 35.6 % (42.0-52.0) L 01/16/24 04:10 MCV 93.2 fL (80.0-94.0) 01/16/24 04:10 MCH 29.3 pg (27.0-31.0) 01/16/24 04:10 MCHC 31.5 g/dL (32.0-36.0) L 01/16/24 04:10 RDW 20.1 % (12.0-15.0) H 01/16/24 04:10 Plt Count 51 10^3/uL (130-450) L 01/16/24 04:10 MPV 10.4 fL (7.4-11.4) 01/16/24 04:10 Reticulocyte % (Auto) 1.04 % (0.5-2.3) 01/13/24 04:42 Neut # (Auto) 6.2 10^3/uL (1.5-6.6) 01/16/24 04:10 Lymph # (Auto) 0.6 10^3/uL (1.5-3.5) L 01/16/24 04:10 [place] # (Auto) 0.7 10^3/uL (0.0-1.0) 01/16/24 04:10 Eos # (Auto) 0.0 10^3/uL (0.0-0.7) 01/16/24 04:10 Baso # (Auto) 0.0 10^3/uL (0.0-0.1) 01/16/24 04:10 Absolute Nucleated RBC 0.00 x10^3/uL 01/16/24 04:10 Nucleated RBC % 0.0 /100WBC 01/16/24 04:10 Manual Slide Review Indicated 01/16/24 04:10 WBC Morphology NORMAL APPEARANCE (NORMAL) 01/14/24 04:50 Platelet Estimate DECREASED (<130,000) (NORMAL) 01/16/24 04:10 Platelet Morphology NORMAL APPEARANCE (NORMAL) 01/14/24 04:50 RBC Morph Micro Appear 1+ ANISOCYTOSIS (NORMAL) 1+ OVALOCYTES (NORMAL) 01/16/24 04:10 RBC Morph Micro Appear 1+ ANISOCYTOSIS (NORMAL) 1+ OVALOCYTES (NORMAL) 01/16/24 04:10 Absolute Retic 0.037 10^6/uL (0.020-0.110) 01/13/24 04:42 PT 15.9 secs (9.9-12.6) H 01/15/24 07:26 INR 1.5 (0.8-1.2) H 01/15/24 07:26 APTT 31.3 secs (24.9-33.3) 01/12/24 18:42 D-Dimer 849.4 ng/mL (200.0-255.0) H 01/12/24 18:42 VBG pH 7.357 (7.31-7.41) 01/16/24 04:10 Ionized Calcium 1.03 mmol/L (1.15-1.33) L 01/16/24 04:10 Sodium 144 mmol/L (135-145) 01/16/24 04:10 Potassium 4.1 mmol/L (3.5-4.5) 01/16/24 04:10 Chloride 110 mmol/L (101-111) 01/16/24 04:10 Carbon Dioxide 22 mmol/L (21-32) 01/16/24 04:10 Anion Gap 12.0 (6-13) 01/16/24 04:10 BUN 43 mg/dL (6-20) H 01/16/24 04:10 Creatinine 1.3 mg/dL (0.6-1.3) 01/16/24 04:10 Estimated GFR (MDRD) 56 (>89) L 01/16/24 04:10 Glucose 106 mg/dL (74-104) H 01/16/24 04:10 POC Whole Bld Glucose 96 mg/dL (70 - 100) 01/15/24 20:37 Estimat Average Glucose 128 mg/dL (70-100) H 01/12/24 18:42 Hemoglobin A1c % 6.1 % (4.27-6.07) H 01/12/24 18:42 Lactic Acid < 0.2 mmol/L (0.5-2.2) L 01/15/24 07:26 Uric Acid 6.9 mg/dL (4.4-7.6) 01/14/24 04:50 Calcium 8.1 mg/dL (8.5-10.3) L 01/16/24 04:10 Phosphorus 4.1 mg/dL (2.5-5.0) 01/16/24 04:10 Magnesium 1.3 mg/dL (1.7-2.3) L 01/16/24 04:10 Total Bilirubin 1.7 mg/dL (0.2-1.0) H 01/15/24 07:26 Direct Bilirubin 0.74 mg/dL (0.03-0.18) H 01/15/24 07:26 AST 64 IU/L (10-42) H 01/15/24 07:26 ALT 33 IU/L (10-60) 01/15/24 07:26 Alkaline Phosphatase 75 IU/L (42-121) 01/15/24 07:26 Ammonia 62.5 umol/L (18-72) 01/15/24 07:26 Lactate Dehydrogenase 346 IU/L (140-271) H 01/13/24 04:42 Total Creatine Kinase 748 IU/L (30-223) H 01/15/24 07:26 Troponin I High Sens 30.3 ng/L (2.3-19.7) H* 01/15/24 07:26 B-Natriuretic Peptide 1234 pg/mL (5-100) H 01/15/24 07:26 Total Protein 6.7 g/dL (6.4-8.9) 01/15/24 07:26 Albumin 3.5 g/dL (3.2-5.5) 01/15/24 07:26 Globulin 3.2 g/dL (2.1-4.2) 01/15/24 07:26 Albumin/Globulin Ratio 1.1 (1.0-2.2) 01/12/24 10:12 Triglycerides 56 mg/dL 01/13/24 04:42 Cholesterol 114 mg/dL (-200) 01/13/24 04:42 LDL Cholesterol, Calc 28 mg/dL (-129) 01/13/24 04:42 VLDL Cholesterol 11 mg/dL 01/13/24 04:42 HDL Cholesterol 75 mg/dL (60-) 01/13/24 04:42 LDL/HDL Ratio 0.4 (<3.6) 01/13/24 04:42 Cholesterol/HDL Ratio 1.5 (<5.0) 01/13/24 04:42 Lipase 148 U/L (11-82) H 01/12/24 10:12 Vitamin B12 402 pg/mL (180-914) 01/13/24 04:42 Folate 5.1 ng/mL (5.90 - >24.8) L 01/13/24 04:42 TSH 1.66 uIU/mL (0.34-5.60) 01/12/24 18:42 Urine Color YELLOW 01/12/24 21:00 Urine Clarity CLEAR (CLEAR) 01/12/24 21:00 Urine pH 6.0 PH (5.0-7.5) 01/12/24 21:00 Ur Specific [place] 1.010 (1.002-1.030) 01/12/24 21:00 Urine Protein NEGATIVE mg/dL (NEGATIVE) 01/12/24 21:00 Urine Glucose (UA) NEGATIVE mg/dL (NEGATIVE) 01/12/24 21:00 Urine Ketones NEGATIVE mg/dL (NEGATIVE) 01/12/24 21:00 Urine Occult Blood SMALL (NEGATIVE) H 01/12/24 21:00 Urine Nitrite NEGATIVE (NEGATIVE) 01/12/24 21:00 Urine Bilirubin NEGATIVE (NEGATIVE) 01/12/24 21:00 Urine Urobilinogen 0.2 (NORMAL) E.U./dL (NORMAL) 01/12/24 21:00 Ur Leukocyte Esterase NEGATIVE (NEGATIVE) 01/12/24 21:00 Urine RBC 11-25 /HPF (0-5) H 01/12/24 21:00 Urine WBC 0-3 /HPF (0-3) 01/12/24 21:00 Ur Squamous Epith Cells RARE Squamous (<= Few) 01/12/24 21:00 Urine Bacteria None Seen /HPF (None Seen) 01/12/24 21:00 Urine Casts 0-2 Hyaline Casts /LPF 01/12/24 21:00 Urine Culture Comments NOT INDICATED 01/12/24 21:00 Urine Creatinine 91.1 mg/dL 01/12/24 21:00 Urine Sodium 40.5 mmol/L 01/12/24 21:00 Nasal Screen MRSA (PCR) NEGATIVE (NEGATIVE) 01/15/24 13:00 Sepsis Event Note (H) - Evaluation Current Stage of Sepsis: Ruled out
[2024-01-16] MEDS ORDERED: diazePAM INJ 5 MG/ML SYRINGE IVP PRN (08:31)
[2024-01-16] MEDS: CALCIUM CARBONATE CHEW 500 MG TABLET PO SCH ×3 (09:24→21:23)
[2024-01-16] MEDS: PRENATAL VITAMIN TABLET PO SCH (09:24)
[2024-01-16] MEDS: diazePAM INJ 5 MG/ML SYRINGE IVP SCH (09:24)
[2024-01-16] MEDS: THIAMINE 100 MG TABLET PO SCH (09:24)
[2024-01-16] MEDS ORDERED: diazePAM 5 MG TABLET PO PRN (11:09)
[2024-01-16 13:55] LABS: CALCIUM, IONIZED 1.04 mmol/L (1.15-1.33); VBG PH 7.461 (7.31-7.41)
[2024-01-16] MEDS: MAGNESIUM OXIDE 400 MG TABLET PO ONE ×2 (15:56→21:23)
[2024-01-16 20:37] LABS: CALCIUM, IONIZED 1.09 mmol/L (1.15-1.33); VBG PH 7.415 (7.31-7.41)
[2024-01-16] MEDS: METOPROLOL TARTRATE 50 MG TABLET PO SCH (21:23)
[2024-01-16] MEDS: SODIUM CHLORIDE FLUSH 0.9% 10 ML SYRINGE IVP PRN (22:48)
[2024-01-17 05:14] LABS: BASOPHILS % (AUTO) 0.1 %; HCT - HEMATOCRIT 33.6 % (42.0-52.0); HGB - HEMOGLOBIN 10.8 g/dL (14.0-18.0); LYMPHOCYTES # (AUTO) 1.1 10^3/uL (1.5-3.5); LYMPHOCYTES % (AUTO) 16.7 %; MEAN CORPUSCULAR HEMOGLOBIN 29.6 pg (27.0-31.0); MEAN CORPUSCULAR HGB CONC 32.1 g/dL (32.0-36.0); MEAN CORPUSCULAR VOLUME 92.1 fL (80.0-94.0); MEAN PLATELET VOLUME 9.7 fL (7.4-11.4); MONOCYTES # (AUTO) 0.9 10^3/uL (0.0-1.0); MONOCYTES % (AUTO) 12.6 %; NEUTROPHILS # (AUTO) 4.7 10^3/uL (1.5-6.6); NRBC ABSOLUTE COUNT (AUTO) 0.02 x10^3/uL; NUCLEATED RED BLOOD CELLS AUTO 0.3 /100WBC; PLT - PLATELET COUNT 62 10^3/uL (130-450); RED BLOOD COUNT 3.65 10^6/uL (4.70-6.10); WHITE BLOOD COUNT 6.8 x10^3/uL (4.8-10.8)
[2024-01-17 05:21] LABS: SLIDE REVIEW? Indicated
[2024-01-17 05:25] LABS: CALCIUM, IONIZED 1.08 mmol/L (1.15-1.33); VBG PH 7.409 (7.31-7.41)
[2024-01-17 05:33] LABS: CREATININE 1.1 mg/dL (0.6-1.3); MAGNESIUM 1.5 mg/dL (1.7-2.3); PHOSPHORUS 3.2 mg/dL (2.5-5.0); POTASSIUM 3.5 mmol/L (3.5-4.5)
[2024-01-17 06:10] LABS: PLATELET ESTIMATE, MANUAL DECREASED (<130,000) (NORMAL)
[2024-01-17] MEDS: MAGNESIUM OXIDE 400 MG TABLET PO ONE (06:12)
[2024-01-17] MEDS: CALCIUM CARBONATE CHEW 500 MG TABLET PO SCH ×2 (06:12→16:49)
[2024-01-17] MEDS: POTASSIUM CHLORIDE 20 MEQ TABLET PO SCH (08:35)
[2024-01-17] MEDS: polyethylene glycoL 3350 17 GM PACKET PO SCH (08:36)
[2024-01-17] MEDS: MAGNESIUM OXIDE 400 MG TABLET PO SCH (09:17)
[2024-01-17] MEDS: AMIODARONE 150 MG/100 ML 100 ML IV ONE (10:02)
[2024-01-17] MEDS: APIXABAN 5 MG TABLET PO SCH (10:10)
[2024-01-17] MEDS: AMIODARONE 360 MG/200 ML 200 ML IV ONE (10:13)
--- NOTE | 2024-01-17 15:11 | PROVIDER PROGRESS NOTE ---
Assessment/Plan - Problem List (1) Alcohol withdrawal delirium Assessment/Plan: Assessment/Plan: Impression: Alcohol withdrawal syndrome has resovled. He did not receive benzodiazepine during the night. Continue to monitor. (2) Syncope and collapse Impression: Etiology unclear and may be related to dehydration, arrhythmia event or vasovagal syncope. Continue to monitor. (3) Atrial fibrillation with RVR Impression: Heart rate remains elevated despite increasing metoprolol. Plan is to transition patient to IV amiodarone for rate control and add antihypertensive medications as needed. Apixaban initiated 5 mg twice daily. He continues to qualify for inpatient hospitalization given his atrial fibrillat ion with rapid ventricular rate. (4) ALEX (acute kidney injury) Impression: Resolving. Continue to monitor. Creatinine has decreased from 1.3 to 1.1. Renal ultrasound unremarkable. Avoid unnecessary nephrotoxins. Continue to hold home losartan and furosemide. (5) Chronic idiopathic thrombocytopenia Impression: He follows with a mobile lounge driver or operator in [place] however he does not recall the name of the mobile lounge driver or operator, but has a follow up scheduled with him soon. Thrombocytopenia appears to be improving. Platelet count today is 62K (6) Anemia Iron Panel Ordered. Continue to monitor. (7) Lymphedema Impression: He has a longstanding history of chronic lymphedema and follows in the wound clinic due to chronic venous stasis ulcerations. Venous duplex negative for DVT bilaterally. (8) Cardiomegaly Impression: Await Transthoracic echocardiogram (9) Essential hypertension Impression: Losartan 50 mg daily. Continue Amlodipine 5 mg daily. (10) Prediabetes Impression: Has been on metformin in the past however he indicates he is not taking this anymore and denies having diabetes. -A1c is 6.1%. (11) Seizure disorder Impression: Denies having any recent seizures issues and no reports of seizure-like activity during his syncopal event at the time of presentation. Monitor for now but no need for seizure workup. Continue home zonisamide 100 mg twice daily. - Current Meds Current Meds: Current Medications Generic Name Dose Route Start Last Admin Trade Name Freq PRN Reason Stop Dose Admin Amlodipine Besylate 5 mg 01/13/24 14:29 01/17/24 08:35 Amlodipine 5 Mg Tablet PO 5 mg DAILY AYESHA Administration Apixaban 5 mg 01/17/24 10:00 01/17/24 10:10 Apixaban 5 Mg Tablet PO 5 mg BID AYESHA Administration Guaifenesin 600 mg 01/13/24 09:00 01/17/24 08:35 Guaifenesin 600 Mg Tablet PO 600 mg BID AYESHA Administration Amiodarone HCl/Dextrose 200 mls @ 33.333 mls/hr 01/17/24 09:23 01/17/24 10:13 Nexterone 360 Mg/200 Ml IV 01/17/24 15:22 33.333 mls/hr ONCE ONE Administration Insulin Human Lispro 1 - 5 unit 01/14/24 08:00 01/17/24 12:22 Insulin Lispro 300 Unit/3 Ml Pen SUBQ Not Given 0800,1200,1700,2100 [facility] Protocol Magnesium Oxide 400 mg 01/17/24 09:00 01/17/24 09:17 Magnesium Oxide 400 Mg Tablet PO 400 mg DAILYWM AYESHA Administration Metoprolol Tartrate 10 mg 01/15/24 17:11 01/17/24 06:18 Metoprolol 5 Mg/5 Ml Vial IVP 10 mg Q6H PRN Administration Tachycardia Nystatin 1 applic 01/14/24 11:00 01/17/24 08:35 Nystatin Powder 15 Gm TOP 1 applic BID AYESHA Administration Zonisamide 100mg 1 each 01/15/24 21:00 01/16/24 21:24 Caps PO 1 each HS AYESHA Administration Polyethylene Glycol 17 gm 01/17/24 09:00 01/17/24 08:36 Polyethylene Glycol 3350 17 Gm Packet PO 17 gm DAILY AYESHA Administration Multivit/Folic Acid/Iron 1 tab 01/16/24 08:00 01/17/24 08:35 Vitamin Tablet PO 1 tab DAILYWM AYESHA Administration Sodium Chloride 10 ml 01/15/24 09:00 01/17/24 08:36 Sodium Chloride Flush 0.9% 10 Ml Syringe IVP 10 ml 0100,0900,1700 AYESHA Administration Sodium Chloride 10 ml 01/15/24 07:09 01/16/24 22:48 Sodium Chloride Flush 0.9% 10 Ml Syringe IVP 10 ml PRN PRN Administration NEEDED PER PROVIDER ORDERS Thiamine HCl 100 mg 01/16/24 09:00 01/17/24 08:35 Thiamine 100 Mg Tablet PO 100 mg DAILY AYESHA Administration Throat Lozenges 1 lozenge 01/13/24 04:47 01/13/24 05:02 Benzocaine/Menthol Lozenge MM 1 lozenge Q2HR PRN Administration Throat pain - Lab Result Fish Bone Diagrams: 01/17/24 04:15 01/17/24 15:52 - Additional Planning My Orders: My Active Orders 01/17/24 Evaluate and Treat OT [OT] Routine Evaluate and Treat PT [PT] Routine 01/17/24 09:00 Magnesium Oxide [Mag Ox] 400 mg PO DAILYWM 01/17/24 09:23 Amiodarone 360 mg/200 ml [Nexterone 360 mg/200 ml] 200 ml IV ONCE 01/17/24 10:00 Apixaban [Eliquis] 5 mg PO BID 01/17/24 14:00 Amiodarone 360 mg/200 ml [Nexterone 360 mg/200 ml] 200 ml IV 0.5 mg/min 01/17/24 16:00 CALCIUM, IONIZED ([facility]) [BG] Timed MAGNESIUM [CHEM] Timed POTASSIUM [CHEM] Timed Subjective - Subjective Patient Reports: Other (Alert. Denies chest pain, shortness of breath and abdominal pain. Patient is alert and oriented to person time and place. He has no other complaints at this time.) Objective Vital Signs: Vital Signs - 24 hr 01/16/24 01/16/24 01/16/24 15:00 15:56 16:09 Temperature 36.8 C Heart Rate [ 131 H Monitoring electrodes] Respiratory 19 25 H Rate Blood Pressure 158/142 H Blood Pressure 158/142 H 126/108 H [Left Brachial artery] Blood Pressure [Right Brachial artery] O2 Saturation 96 96 01/16/24 01/16/24 01/16/24 17:00 17:28 17:58 Temperature Heart Rate [ 111 H 136 H Monitoring electrodes] Respiratory 24 27 H Rate Blood Pressure 140/91 H Blood Pressure 140/91 H 123/83 H [Left Brachial artery] Blood Pressure [Right Brachial artery] O2 Saturation 96 95 01/16/24 01/16/24 01/16/24 19:00 20:00 21:20 Temperature 38.0 C H Heart Rate [ 82 129 H 133 H Monitoring electrodes] Respiratory 21 25 H 24 Rate Blood Pressure Blood Pressure 119/91 H 134/96 H 161/85 H [Left Brachial artery] Blood Pressure [Right Brachial artery] O2 Saturation 94 95 95 01/16/24 01/16/24 01/16/24 21:23 22:00 23:00 Temperature 37.8 C 37.7 C Heart Rate [ 121 H 116 H Monitoring electrodes] Respiratory 20 17 Rate Blood Pressure 161/85 H Blood Pressure 123/75 139/87 H [Left Brachial artery] Blood Pressure [Right Brachial artery] O2 Saturation 96 94 01/17/24 01/17/24 01/17/24 00:00 01:00 02:00 Temperature 37.4 C Heart Rate [ 119 H 118 H 107 H Monitoring electrodes] Respiratory 16 16 16 Rate Blood Pressure Blood Pressure 132/84 H 144/94 H 133/86 H [Left Brachial artery] Blood Pressure [Right Brachial artery] O2 Saturation 95 95 94 01/17/24 01/17/24 01/17/24 03:00 04:00 05:00 Temperature 37.3 C 37.3 C 37.5 C Heart Rate [ 116 H 118 H 119 H Monitoring electrodes] Respiratory 15 17 24 Rate Blood Pressure Blood Pressure 131/82 H 145/93 H 137/91 H [Left Brachial artery] Blood Pressure [Right Brachial artery] O2 Saturation 93 94 97 01/17/24 01/17/24 01/17/24 06:00 06:18 06:25 Temperature 37.4 C Heart Rate [ 115 H 114 H Monitoring electrodes] Respiratory 22 Rate Blood Pressure 133/105 H Blood Pressure [Left Brachial artery] Blood Pressure 129/102 H 143/98 H [Right Brachial artery] O2 Saturation 96 01/17/24 01/17/24 01/17/24 06:30 06:35 06:40 Temperature Heart Rate [ 114 H 112 H 114 H Monitoring electrodes] Respiratory Rate Blood Pressure Blood Pressure [Left Brachial artery] Blood Pressure 145/88 H 150/93 H 137/98 H [Right Brachial artery] O2 Saturation 01/17/24 01/17/24 01/17/24 06:45 06:48 07:00 Temperature 37.4 C Heart Rate [ 115 H 114 H Monitoring electrodes] Respiratory 22 Rate Blood Pressure 157/96 H Blood Pressure [Left Brachial artery] Blood Pressure 157/96 H 158/103 H [Right Brachial artery] O2 Saturation 95 01/17/24 01/17/24 01/17/24 08:00 08:35 08:58 Temperature 37.9 C Heart Rate [ 126 H 136 H Monitoring electrodes] Respiratory 20 21 Rate Blood Pressure 129/73 Blood Pressure [Left Brachial artery] Blood Pressure 121/101 H 121/81 H [Right Brachial artery] O2 Saturation 95 98 01/17/24 01/17/24 01/17/24 10:00 11:00 12:00 Temperature Heart Rate [ 101 H 96 93 Monitoring electrodes] Respiratory 20 21 21 Rate Blood Pressure Blood Pressure [Left Brachial artery] Blood Pressure 111/74 148/72 H 139/83 H [Right Brachial artery] O2 Saturation 97 95 98 01/17/24 01/17/24 13:00 13:55 Temperature Heart Rate [ 106 H 115 H Monitoring electrodes] Respiratory 22 24 Rate Blood Pressure Blood Pressure [Left Brachial artery] Blood Pressure 159/102 H 151/85 H [Right Brachial artery] O2 Saturation 98 94 Oxygen O2 Source Room air I&O (Last 24 Hrs): Intake and Output Totals x24h 01/15/24 01/16/24 01/17/24 23:59 23:59 23:59 Intake Total 675.279 3068.542 2240 Output Total 1145 1917 790 Balance -700.832 7911.542 1450 General: Alert, No acute distress Neck: No JVD Neuro: Alert, Non Focal Cardiovascular: Other (Positive S1-S2 regular irregular. No extra heart sounds) Respiratory: Other (Good air exchange in all lung oleary. No wheezing no crackles.) Abdomen: Other (Soft nontender nondistended positive bowel sounds) Extremities: No cyanosis Skin: No rashes - Results Results: Laboratory Results WBC 6.8 x10^3/uL (4.8-10.8) 01/17/24 04:15 RBC 3.65 10^6/uL (4.70-6.10) L 01/17/24 04:15 Hgb 10.8 g/dL (14.0-18.0) L 01/17/24 04:15 Hct 33.6 % (42.0-52.0) L 01/17/24 04:15 MCV 92.1 fL (80.0-94.0) 01/17/24 04:15 MCH 29.6 pg (27.0-31.0) 01/17/24 04:15 MCHC 32.1 g/dL (32.0-36.0) 01/17/24 04:15 RDW 21.0 % (12.0-15.0) H 01/17/24 04:15 Plt Count 62 10^3/uL (130-450) L 01/17/24 04:15 MPV 9.7 fL (7.4-11.4) 01/17/24 04:15 Reticulocyte % (Auto) 1.04 % (0.5-2.3) 01/13/24 04:42 Neut # (Auto) 4.7 10^3/uL (1.5-6.6) 01/17/24 04:15 Lymph # (Auto) 1.1 10^3/uL (1.5-3.5) L 01/17/24 04:15 [place] # (Auto) 0.9 10^3/uL (0.0-1.0) 01/17/24 04:15 Eos # (Auto) 0.0 10^3/uL (0.0-0.7) 01/17/24 04:15 Baso # (Auto) 0.0 10^3/uL (0.0-0.1) 01/17/24 04:15 Absolute Nucleated RBC 0.02 x10^3/uL 01/17/24 04:15 Nucleated RBC % 0.3 /100WBC 01/17/24 04:15 Manual Slide Review Indicated 01/17/24 04:15 WBC Morphology NORMAL APPEARANCE (NORMAL) 01/14/24 04:50 Platelet Estimate DECREASED (<130,000) (NORMAL) 01/17/24 04:15 Platelet Morphology NORMAL APPEARANCE (NORMAL) 01/14/24 04:50 RBC Morph Micro Appear 1+ ANISOCYTOSIS (NORMAL) 1+ HYPOCHROMASIA (NORMAL) 1+ OVALOCYTES (NORMAL) 01/17/24 04:15 RBC Morph Micro Appear 1+ ANISOCYTOSIS (NORMAL) 1+ HYPOCHROMASIA (NORMAL) 1+ OVALOCYTES (NORMAL) 01/17/24 04:15 RBC Morph Micro Appear 1+ ANISOCYTOSIS (NORMAL) 1+ HYPOCHROMASIA (NORMAL) 1+ OVALOCYTES (NORMAL) 01/17/24 04:15 Absolute Retic 0.037 10^6/uL (0.020-0.110) 01/13/24 04:42 PT 15.9 secs (9.9-12.6) H 01/15/24 07:26 INR 1.5 (0.8-1.2) H 01/15/24 07:26 APTT 31.3 secs (24.9-33.3) 01/12/24 18:42 D-Dimer 849.4 ng/mL (200.0-255.0) H 01/12/24 18:42 VBG pH 7.409 (7.31-7.41) 01/17/24 04:15 Ionized Calcium 1.08 mmol/L (1.15-1.33) L 01/17/24 04:15 Sodium 142 mmol/L (135-145) 01/17/24 04:15 Potassium 3.5 mmol/L (3.5-4.5) 01/17/24 04:15 Chloride 109 mmol/L (101-111) 01/17/24 04:15 Carbon Dioxide 24 mmol/L (21-32) 01/17/24 04:15 Anion Gap 9.0 (6-13) 01/17/24 04:15 BUN 38 mg/dL (6-20) H 01/17/24 04:15 Creatinine 1.1 mg/dL (0.6-1.3) 01/17/24 04:15 Estimated GFR (MDRD) 68 (>89) L 01/17/24 04:15 Glucose 101 mg/dL (74-104) 01/17/24 04:15 POC Whole Bld Glucose 99 mg/dL (70 - 100) 01/17/24 11:44 Estimat Average Glucose 128 mg/dL (70-100) H 01/12/24 18:42 Hemoglobin A1c % 6.1 % (4.27-6.07) H 01/12/24 18:42 Lactic Acid < 0.2 mmol/L (0.5-2.2) L 01/15/24 07:26 Uric Acid 6.9 mg/dL (4.4-7.6) 01/14/24 04:50 Calcium 8.0 mg/dL (8.5-10.3) L 01/17/24 04:15 Phosphorus 3.2 mg/dL (2.5-5.0) 01/17/24 04:15 Magnesium 1.5 mg/dL (1.7-2.3) L 01/17/24 04:15 Total Bilirubin 1.7 mg/dL (0.2-1.0) H 01/15/24 07:26 Direct Bilirubin 0.74 mg/dL (0.03-0.18) H 01/15/24 07:26 AST 64 IU/L (10-42) H 01/15/24 07:26 ALT 33 IU/L (10-60) 01/15/24 07:26 Alkaline Phosphatase 75 IU/L (42-121) 01/15/24 07:26 Ammonia 62.5 umol/L (18-72) 01/15/24 07:26 Lactate Dehydrogenase 346 IU/L (140-271) H 01/13/24 04:42 Total Creatine Kinase 748 IU/L (30-223) H 01/15/24 07:26 Troponin I High Sens 30.3 ng/L (2.3-19.7) H* 01/15/24 07:26 B-Natriuretic Peptide 1234 pg/mL (5-100) H 01/15/24 07:26 Total Protein 6.7 g/dL (6.4-8.9) 01/15/24 07:26 Albumin 3.5 g/dL (3.2-5.5) 01/15/24 07:26 Globulin 3.2 g/dL (2.1-4.2) 01/15/24 07:26 Albumin/Globulin Ratio 1.1 (1.0-2.2) 01/12/24 10:12 Triglycerides 56 mg/dL 01/13/24 04:42 Cholesterol 114 mg/dL (-200) 01/13/24 04:42 LDL Cholesterol, Calc 28 mg/dL (-129) 01/13/24 04:42 VLDL Cholesterol 11 mg/dL 01/13/24 04:42 HDL Cholesterol 75 mg/dL (60-) 01/13/24 04:42 LDL/HDL Ratio 0.4 (<3.6) 01/13/24 04:42 Cholesterol/HDL Ratio 1.5 (<5.0) 01/13/24 04:42 Lipase 148 U/L (11-82) H 01/12/24 10:12 Vitamin B12 402 pg/mL (180-914) 01/13/24 04:42 Folate 5.1 ng/mL (5.90 - >24.8) L 01/13/24 04:42 TSH 1.66 uIU/mL (0.34-5.60) 01/12/24 18:42 Urine Color YELLOW 01/12/24 21:00 Urine Clarity CLEAR (CLEAR) 01/12/24 21:00 Urine pH 6.0 PH (5.0-7.5) 01/12/24 21:00 Ur Specific Totz 1.010 (1.002-1.030) 01/12/24 21:00 Urine Protein NEGATIVE mg/dL (NEGATIVE) 01/12/24 21:00 Urine Glucose (UA) NEGATIVE mg/dL (NEGATIVE) 01/12/24 21:00 Urine Ketones NEGATIVE mg/dL (NEGATIVE) 01/12/24 21:00 Urine Occult Blood SMALL (NEGATIVE) H 01/12/24 21:00 Urine Nitrite NEGATIVE (NEGATIVE) 01/12/24 21:00 Urine Bilirubin NEGATIVE (NEGATIVE) 01/12/24 21:00 Urine Urobilinogen 0.2 (NORMAL) E.U./dL (NORMAL) 01/12/24 21:00 Ur Leukocyte Esterase NEGATIVE (NEGATIVE) 01/12/24 21:00 Urine RBC 11-25 /HPF (0-5) H 01/12/24 21:00 Urine WBC 0-3 /HPF (0-3) 01/12/24 21:00 Ur Squamous Epith Cells RARE Squamous (<= Few) 01/12/24 21:00 Urine Bacteria None Seen /HPF (None Seen) 01/12/24 21:00 Urine Casts 0-2 Hyaline Casts /LPF 01/12/24 21:00 Urine Culture Comments NOT INDICATED 01/12/24 21:00 Urine Creatinine 91.1 mg/dL 01/12/24 21:00 Urine Sodium 40.5 mmol/L 01/12/24 21:00 Nasal Screen MRSA (PCR) NEGATIVE (NEGATIVE) 01/15/24 13:00 Sepsis Event Note (H) - Evaluation Current Stage of Sepsis: Ruled out
[2024-01-17 16:04] LABS: CALCIUM, IONIZED 1.08 mmol/L (1.15-1.33); VBG PH 7.46 (7.31-7.41)
[2024-01-17] MEDS: AMIODARONE 360 MG/200 ML 200 ML IV SCH (16:10)
[2024-01-17 16:19] LABS: MAGNESIUM 1.4 mg/dL (1.7-2.3); POTASSIUM 3.9 mmol/L (3.5-4.5)
[2024-01-17] MEDS: POTASSIUM CHLORIDE 20 MEQ TABLET PO ONE (16:48)
[2024-01-17] MEDS: MAGNESIUM SULFATE 2 GRAM 2 GM/50 ML BAG IV SCH (16:49)
[2024-01-17] MEDS: METOPROLOL TARTRATE 25 MG TABLET PO SCH (21:01)
[2024-01-17] MEDS: LOSARTAN 50 MG TABLET PO SCH (21:01)
[2024-01-17] MEDS: ZONISAMIDE 100 MG PO SCH (21:06)
[2024-01-18] MEDS: MAGNESIUM OXIDE 400 MG TABLET PO ONE (00:02)
[2024-01-18] MEDS: POTASSIUM CHLORIDE 20 MEQ TABLET PO ONE ×2 (00:02→08:09)
[2024-01-18 04:55] LABS: CALCIUM, IONIZED 1.1 mmol/L (1.15-1.33); VBG PH 7.468 (7.31-7.41)
[2024-01-18 05:10] LABS: CALCIUM 8.3 mg/dL (8.5-10.3); POTASSIUM 3.8 mmol/L (3.5-4.5)
[2024-01-18] MEDS: CALCIUM CARBONATE CHEW 500 MG TABLET PO SCH (06:41)
[2024-01-18] MEDS: AMIODARONE 200 MG TABLET PO SCH (08:08)
[2024-01-18] MEDS: METOPROLOL TARTRATE 25 MG TABLET PO SCH (10:55)
[2024-01-18 13:23] VITALS: O2SAT 100
[2024-01-18 14:07] VITALS: BP 142/81
--- NOTE | 2024-01-18 14:35 | DISCHARGE SUMMARY ---
Discharge Summary Admit Date: 01/12/24 Discharge Date: 01/18/24 Discharging Provider: Papito Salazar MD Primary Care Provider: D Discharge Disposition: 01 Home, Self Care - DIAGNOSES Admission Diagnoses: (1) Syncope and collapse (2) Atrial fibrillation with RVR (3) Lymphedema (4) Cardiomegaly (5) ALEX (acute kidney injury) (6) Prediabetes (7) Chronic idiopathic thrombocytopenia (8) Seizure disorder Discharge Diagnoses with Status of Each Condition: (1) Alcohol withdrawal delirium Alcohol withdrawal syndrome has resovled. During his hospitalization he was counseled to stop drinking. (2) Syncope and collapse Impression: Etiology unclear and may be related to dehydration, arrhythmia event or vasovagal syncope. Patient has not had any more events since his hospitalization (3) Atrial fibrillation with RVR Recommend loading with amiodarone by taking 400 mg twice daily for 7 days and th en maintenance dose would be 200 mg daily. In addition to amiodarone patient is requiring metoprolol 50 mg twice daily for rate control. Recommend increasing metoprolol as needed for rate control/blood pressure control. Anticoagulation has been initiated with apixaban 5 mg twice daily. (4) ALEX (acute kidney injury) Acute kidney injury has resolved. Outpatient dose of furosemide has been discontinued and recommend discussing further treatment with furosemide with primary care provider. (5) Chronic idiopathic thrombocytopenia Platelet count has increased from 29K upon admission to 62K upon discharge. Etiology is not clear but may be related to alcohol use. (6) Anemia Iron panel was not consistent with iron deficiency anemia. Anemia may be related to alcohol use. Recommend continue to follow hemoglobin/hematocrit as an outpatient. (7) Lymphedema Impression: He has a longstanding history of chronic lymphedema and follows in the wound clinic due to chronic venous stasis ulcerations. Venous duplex negative for DVT bilaterally. Furosemide was discontinued due to the fact that he developed acute kidney injury. Recommend patient discuss reinitiating diuretics with his primary care provider. (8) Cardiomegaly Impression: Echocardiogram revealed normal left ventricular and right ventricular size and function. Ejection fraction is estimated to be 55-60%. There were no significant valvular abnormalities. (9) Essential hypertension Continue treatment with metoprolol, amlodipine and losartan. (10) Obstructive Sleep Apnea Patient is compliant with the CPAP device and he is encouraged to continue to use his CPAP every night throughout the night. - HPI History of Present Illness: Per Dr. Gene Hassan history of physical: Mr. Romero is a 63-year-old male with a history of hypertension, immune thrombocytopenic purpura, lymphedema, NATTY on CPAP, seizure disorder and prediabetes who presents with syncope. The patient indicates that he had been in his normal state of health but on 01/08/2024 he developed myalgias, fatigue, chills and significant nausea, vomiting and diarrhea. He had multiple episodes of emesis and diarrhea but denies having any hematemesis, melena or he matochezia. He was having mild abdominal cramps but denied significant abdominal pain. During that time he was unable to eat very much but was trying to drink electrolyte solutions to stay hydrated. The symptoms persisted through Monday and Monday but started to improve on Monday. Yesterday he was feeling improved though he did notice he was still fatigued, weak and dizzy when standing. Today he did decide to go to work and not long after being at work he became lightheaded and felt chest tightness but denied any palpitations or pleurisy. He then started to blackout and his coworkers indicated he passed out briefly for few seconds. There is no seizure-like activity and he regained consciousness rapidly. EMS was contacted who noted his blood pressure was in the 80s systolic and he was also tachycardic in the 100-1 20 range and apparent new onset atrial fibrillation with RVR. He was given IV fluids and brought to the emergency department. In the emergency department he indicated his symptoms were better and his blood pressure was in the 100-120 systolic range after receiving IV fluids. He remained in atrial fibrillation with rates in the 100-110 range. His labs showed a troponin of 17.8 that decreased to 16.0 but he did have acute kidney injury with a creatinine of 2.7 where his baseline creatinine is about 1.1. He was also noted to have a platelet count of 29, with his baseline platelet count ranging from 50-100 though this is not able to be verified as his labs are not in our system. Given his syncopal episode and new onset atrial fibrillation with RVR along with acute kidney injury he was placed in the hospital for further care. - HOSPITAL COURSE Hospital Course: Mr. Romero was admitted on January 12, 2024 as an inpatient for atrial fibrillation with rapid ventricular response. Treatment was initated with metoprolol. TSH on admission was normal. Anticoagulation was initially withheld due to a platelet count of 29K. Echocardiogram performed on January 13, 2024 revealed normal LV size and systolic function with an estimated ejection fraction of 55-60%. Echocardiogram also demonstrated normal RV size and function. There was no significant valvular pathology. Please see report for details. Renal ultrasound performed on January 13, 2024 revealed no sonographic evidence of obstructive uropathy or hydronephrosis. The kidneys. To be normal bilaterally. A venous duplex was also performed on January 13, 2024 to evaluate for possible deep venous thrombosis in this study did not reveal any evidence of deep venous thrombosis A CT angiogram was performed on January 14, 2024 and did not reveal any evidence of pulmonary embolus. The study did not demonstrate any evidence of pneumothorax or pulmonary nodules/mass. Hemoglobin A1c was elevated at 6.1% and is consistent with prediabetes. On January 14, 2024, patient continued to require increasing doses of metoprolol with no significant change in his atrial fibrillation with rapid ventricular response. On January 15, 2024, patient became combative and required violent restraints for period of time. He was transferred to the intensive care unit for close hemodynamic monitoring and treatment was initiated with the [facility] protocol because his clinical condition was most consistent with an alcohol withdrawal delirium. He required restraints due to his severe agitation. Treatment was also initiated with dexmedetomidine. On January 16, 2024 dexmedetomidine was discontinued and patient was transitioned from lorazepam to diazepam. On January 17, 2024, Alcohol withdrawal syndrome had resolved and he required no doses of diazepam. Patient continued to have atrial fibrillation with rapid ventricular response despite increasing his metoprolol to 200 mg daily. Treatment was initiated with IV amiodarone with good response. Anticoagulation was initiated with apixaban. On January 18, 2024, patient was transition to p.o. amiodarone 400 mg twice daily in addition to metoprolol 50 mg twice daily. He is able to ambulate more than 200 feet without significant shortness of breath. His heart rate does increase to [id number] range with exertion but after 10 minutes of rest, his heart rate has decreased to the [address] range and he remains asymptomatic. Patient is now stable for discharge to home. - ALLERGIES Allergies/Adverse Reactions: Allergies Allergy/AdvReac Type Severity Reaction Status Date / Time No Known Drug Allergies Allergy Verified 01/12/24 10:07 - MEDICATIONS Home Medications: Ambulatory Orders Medication Instructions Recorded Confirmed Zonisamide [Zonegran] 200 mg PO HS 01/12/24 01/13/24 Multivit with Iron,Minerals 1 tab PO DAILY 01/13/24 01/13/24 [Multivitamins with Iron] Apixaban [Eliquis] 5 mg PO BID #60 tab 01/17/24 Amiodarone [Pacerone] 200 mg PO DAILY #30 tablet 01/18/24 Amiodarone [Pacerone] 400 mg PO BID 7 Days #28 tab 01/18/24 Losartan [Cozaar] 50 mg PO HS #30 tablet 01/18/24 amLODIPine [Norvasc] 5 mg PO DAILY #30 tab 01/18/24 - PHYSICAL EXAM AT DISCHARGE General Appearance: positive: No acute distress, Alert Eyes Bilateral: positive: Conjunctivae nml Neck: positive: Thyroid nml, No JVD Respiratory: positive: Other (Good air exchange in all lung oleary no wheezing or crackles.) Cardiovascular: positive: Other (Positive S1-S2 irregularly irregular) Abdomen: positive: Other (Soft nontender nondistended positive bowel sound) Skin: positive: No rash Extremities: positive: No pedal edema Neurologic/Psychiatric: positive: Oriented x3, Motor nml - LABS Result Diagrams: 01/17/24 04:15 01/18/24 04:10 - SEPSIS Current Stage of Sepsis: Ruled out - QUALITY (Female Hip Fx Only) Was patient sent home on osteoporosis medication?: No - FOLLOW UP Follow Up: Please follow-up with your primary care provider, Claudia Alan MD in 2-4 weeks. - TIME SPENT Time Spent in Discharge (Minutes): 45 (45 minutes spent coordinating discharge a nd counseling patient prior to discharge. )
[2024-01-18] MEDS ORDERED: METOPROLOL TARTRATE 25 MG TABLET PO SCH (21:00)
== END 2024-01-18 17:00 | disposition home or self-care (01) | DRG 897 ==
LOC: EDUNIT# → ED 10:01 → MS2 18:33 → OBSVTOIN 01-13 12:14 → ICU 01-15 09:06
PROVIDERS: ADMIT Hospitalist; ATTEND Internal Medicine
DX: F10.231 Alcohol dependence with withdrawal delirium (principal); D69.3 Immune thrombocytopenic purpura; N17.9 Acute kidney failure, unspecified; D61.818 Other pancytopenia; I48.91 Unspecified atrial fibrillation; R55 Syncope and collapse; D50.9 Iron deficiency anemia, unspecified; I89.0 Lymphedema, not elsewhere classified; I83.009 Varicose veins of unspecified lower extremity with ulcer of unspecified site; G47.33 Obstructive sleep apnea (adult) (pediatric); Z78.1 Physical restraint status; G40.909 Epilepsy, unspecified, not intractable, without status epilepticus; R73.03 Prediabetes; E86.0 Dehydration; I11.9 Hypertensive heart disease without heart failure; R00.0 Tachycardia, unspecified
CPT/HCPCS: 36415; 71045; 71275; 76770; 80048; 80053; 80061; 80076; 81001; 82140; 82330; 82550; 82570; 82607; 82746; 83036; 83540; 83605; 83615; 83690; 83735; 83880; 84100; 84132; 84300; 84443; 84466; 84484; 84550; 85025; 85027; 85045; 85379; 85610; 85730; 87150; 93005; 93307; 93970; 96361; 96365; 96366; 96375; 96376; 99285; A9270; G0378; J0282; J2060; J3411; J7040; J8540; Q9967; 83721; 87086